=== PATIENT | female | born 1975 | race Caucasian/White ===

== ENCOUNTER 2020-08-14 12:33 | Emergency (ER) | payer OTHER, SELFPAY ==
--- NOTE | ~2020-08-14 | XR_ITS ---
XR chest 1V portable DATE: 08/14/2020 13:55 INDICATION: Covid-positive patient TECHNIQUE: Portable upright AP chest on 08/14/2020 at 1357 hours COMPARISON: 07/18/2015 PA and lateral chest FINDINGS: Normal heart size. No hilar or mediastinal enlargement. No pulmonary infiltrate or consolidation, pleural effusion or pulmonary vascular congestion or pneumo thorax. IMPRESSION: No active cardiopulmonary disease Reviewed, dictated and finalized at location A. AND DOG BATHER
--- NOTE | ~2020-08-14 | CT_ITS ---
EXAMINATION: CTA chest PE protocol DATE: 08/14/2020 15:40 INDICATION: Left-sided chest pain, COVID 19 positive TECHNIQUE: Computed tomography angiography (CTA) of the chest was performed with 100 mL Omnipaque-350 intravenous contrast timed to evaluate the pulmonary arteries. Coronal maximum intensity projection 3D-reconstructions were created by the technologist. The dose-length product (DLP) was 908.57 mGy-cm. Automated exposure control and iterative reconstruction technique were employed. COMPARISON: None. FINDINGS: The pulmonary arteries are well-opacified. No pulmonary embolism is identified. There are a few patchy groundglass opacities in the lungs, right greater than left. No pleural effusion or pneum othorax is identified. No pathologically enlarged thoracic lymph nodes are identified. The heart size is normal. There is a 1.9 cm nodule of the right thyroid lobe. The gallbladder is surgically absent. There is mild thoracic spondylosis. There are at least six arterially enhancing lesions of the liver. The largest is a 2.3 cm exophytic l esion involving liver segment I. Additional smaller lesions are seen in liver segments II, Beny, V, , and VIII. The liver is diffusely low in attenuation when compared with the spleen, consistent with hepatic steatosis. IMPRESSION: 1. No pulmonary embolism. 2. Patchy groundglass opacities of the lungs, consistent with COVID 19 pneumonia. 3. Multiple arterial enhancing lesions of the liver which could reflect hepatic adenomas or possibly focal nodular hyperplasia or flash filling hemangiomas. Follow-up by MRI without and with contrast is recommended. Reviewed, dictated and finalized at location A. DER BRAKE LINING IMPRESSION: 1. No pulmonary embolism. 2. Patchy groundglass opacities of the lungs, consistent with COVID 19 pneumoni a. 3. Multiple arterial enhancing lesions of the liver which could reflect hepatic adenomas or possibly focal nodular hyperplasia or flash filling hemangiomas. F ollow-up by MRI without and with contrast is recommended.
[2020-08-14 13:07] VITALS: BP 139/108; PULSE 93; RESP 20; TEMP 36.3; O2SAT 98
[2020-08-14 13:19] VITALS: RESP 20
--- NOTE | 2020-08-14 13:24 | ECG_ITS ---
Measurements Intervals [place] Rate: 84 P: 9 MS: 138 QRS: 58 QRSD: 82 T: 0 QT: 338 QTc: 401 Interpretive Statements SINUS RHYTHM DELAYED PRECORDIAL R/S TRANSITION BORDERLINE ST-T WAVE ABNORMALITY- INFERIOR LEADS BASELINE ARTIFACT- I, II, AVF BORDERLINE ECG Electronically Signed On 08-14-2020 14:36:59 IT DIRECTOR by Jean Claude Ward D.O.
--- NOTE | 2020-08-14 13:29 | ED.GENADULT ---
HPI - General Adult General Chief complaint: Chest Pain Stated complaint: pain in chest brain fog Time Seen by Provider: 08/14/20 13:20 Source: patient Mode of arrival: ambulatory Limitations: no limitations History of Present Illness HPI narrative: Patient states she has had pain above and below her left breast. Discomfort has been mild, off and on since last pm, and associated with some anxiety. Nothing at home has made the discomfort better or worse. Quality of discomfort is dull in nature. Radiation: non-radiation Severity: mild Quality: dull Pain Consistency: intermittent Exacerbating factors: none Associated symptoms: denies other symptoms Related Data Home Medications Medication Instructions Recorded Confirmed albuterol sulfate 2 inh INHALATION Q6H 08/14/20 08/14/20 fluticasone propion-salmeterol 1 inh INHALATION BID 08/14/20 08/14/20 [Advair Diskus] levocetirizine [Xyzal] 5 mg PO DAILY 08/14/20 08/14/20 montelukast 10 mg PO DAILY 08/14/20 08/14/20 Allergies Allergy/AdvReac Type Severity Reaction Status Date / Time Sulfa (Sulfonamide Allergy Mild RESP Unverified 08/14/20 13:23 Antibiotics) DISTRESS Review of Systems Constitutional: Constitutional: Reports no additional constitutional complaints Eyes: Eyes: Reports no additional eye complaints ENT: Reports system reviewed and no additional complaints, except as documented Cardiovascular: Cardiovascular: Reports no additional cardiovascular complaints Respiratory: Respiratory: Reports dyspnea Comments: mild shortness of breath Gastrointestinal: Gastrointestinal: Reports no additional gastrointestinal complaints Genitourinary: Genitourinary: Reports no additional female genitourinary complaints Musculoskeletal: Musculoskeletal: Reports no additional musculoskeletal complaints Integumentary/Breasts: Skin/Breast: Reports system reviewed and no additional complaints, except as docu Neurologic: Reports system reviewed and no additional complaints, except as documented Psychiatric: Psychiatric: Reports no additional psychiatric complaints Endocrine: Endocrine: Reports no additional endocrine complaints Hematologic/Lymphatic: Hematologic/Lymphatic: Reports no additional hematologic/lymphatic complaints Allergic/Immunologic: Allergic/Immunologic: Reports no additional allergic/immunologic complaints [facility] Past Medical History Medical History (Updated 08/14/20 @ 16:35 by Yossi Crisostomo MD) Asthma Endometriosis Surgical History Surgical History (Updated 08/14/20 @ 15:40 by Yossi Crisostomo MD) No significant past surgical history Family History Family History Mother Hypertension Father Heart disease Lymphoma Social History Social History Smoking status: Never smoker Alcohol use details: minimal Substance use: never Living arrangements: with family 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 No discomfort when pressing on these areas. No rashes. Resp: Effort & Inspection: normal respiratory effort Auscultation: clear to auscultation bilaterally Cardio: Rate: regular rate Rhythm: regular rhythm GI: GI Palp: Yes Soft to palpation Skin: General skin exam: normal color Neuro: General: patient oriented x3 and moves all extremities Extrem: General: normal to inspection Psych: Appearance: grossly normal Mental Status: mental status grossly normal Affe
[2020-08-14 13:45] LABS: Basophils Absolute Auto 0.03 K/mm3 (0.00-0.10); Basophils Percent Auto 0.5 % (0.0-1.0); Eosinophils Absolute Auto 0.01 K/mm3 (0.02-0.50); Eosinophils Percent Auto 0.2 % (1.0-6.0); Hematocrit 46.1 % (35.0-49.0); Hemoglobin 15.2 g/dL (12.0-15.0); Immature Granulocyte Absolute 0.02 K/mm3 (0.00-0.00); Immature Granulocyte Percent A 0.3 % (0.0-0.0); Lymphocytes Absolute Auto 2.22 K/mm3 (1.10-4.50); Lymphocytes Percent Auto 37.6 % (18.0-42.0); Mean Corpuscular Hemoglobin 30.8 pg (27.0-31.0); Mean Corpuscular Volume 93.3 fL (78.0-102.0); Mean Platelet Volume 9.6 fl (9.2-11.8); Monocytes Absolute Auto 0.51 K/mm3 (0.10-0.90); Monocytes Percent Auto 8.6 % (2.0-11.0); Neutrophils Absolute Auto 3.1 K/mm3 (1.7-7.2); Neutrophils Percent Auto 52.8 % (50.0-70.0); Platelet Count Result 280 K/mm3 (150-420); Red Blood Count 4.94 M/mm3 (4.20-5.40); Red Cell Distribution Width 13.3 % (11.6-14.4); White Blood Count 5.9 K/mm3 (4.8-10.8)
[2020-08-14 14:00] VITALS: BP 110/82; PULSE 84; RESP 20; O2SAT 94
[2020-08-14 14:00] LABS: D Dimer 0.55 mg/L (0.19-0.50)
[2020-08-14 14:02] LABS: Alanine Aminotransferase 49 U/L (14-59); Albumin Level 3.7 g/dL (3.4-5.0); Alkaline Phosphatase 102 U/L (46-116); Anion Gap 9 mmol/L (8-16); Aspartate Amino Transferase 15 U/L (15-37); Bilirubin,Total 0.2 mg/dL (0.00-1.00); Blood Urea Nitrogen 19 mg/dL (7-18); Calcium 8.8 mg/dL (8.5-10.1); Carbon Dioxide 26 mmol/L (21-32); Chloride 101 mmol/L (98-108); Estimated CRCL calculation 65 ml/min; Estimated Glomerular Filt Rate 59; Glucose 95 mg/dL (70-99); Osmolality Calculated 284 mOsm/kg (285-295); Potassium 3.5 mmol/L (3.5-5.1); Sodium 136 mmol/L (136-145); Total Protein 7.7 g/dL (6.4-8.2); Troponin I 4.7 ng/L (0.00-60.4)
[2020-08-14 15:00] VITALS: BP 92/65; PULSE 90; RESP 20; O2SAT 98
[2020-08-14 15:05] LABS: SPREG INTERNAL CONTROL Positive; Serum Qual hCG NEG
[2020-08-14 16:00] VITALS: BP 100/88; PULSE 88; RESP 20; O2SAT 98
[2020-08-14 17:00] VITALS: PULSE 84; RESP 20; O2SAT 97
[2020-08-14 17:21] LABS: Free T4 Free Thyroxine 0.93 ng/dL (0.76-1.46); Thyroid Stimulating Hormone 1.47 uIU/mL (0.36-3.74)
== END 2020-08-14 17:15 | disposition home or self-care (01) ==
PROVIDERS: Emergency Provider Emergency Medicine; PCP Internal Medicine
DX: R07.89 Other chest pain (principal); E04.1 Nontoxic single thyroid nodule
CPT/HCPCS: 36415; 71045; 71275; 80053; 84439; 84443; 84484; 84703; 85025; 85380; 93005; 99283; 99284; Q9965; Q9967

== ENCOUNTER 2021-10-06 12:15 | Outpatient (CLI) | payer OTHER, SELFPAY ==
--- NOTE | ~2021-10-06 | MM_ITS ---
EXAMINATION: MM screening karely BI w isidro HISTORY: Screening mammogram TECHNIQUE: Craniocaudal and mediolateral oblique 3-D tomosynthesis images were obtained and synthetic 2-D images were generated. CAD analysis was submitted and interpreted. COMPARISON: No prior mammogram is available for comparison at this institution. BREAST PARENCHYMAL COMPOSITION: There are scattered areas of fibroglandular density. FINDINGS: There is an indeterminate right cluster grouped microcalcifications in the upper outer left breast. Diagnostic left mammogram with magnification views is recommended. Otherwise there is no evidence of suspicious mass, calcification, or architectural distortion to sugg est malignancy in either breast.. IMPRESSION: 1. Indeterminate grouped microcalcifications, upper outer left breast 2. Diagnostic left mammogram with magnification views is recommended BI-RADS Category 0: Incomplete: Needs additional imaging evaluation. Reviewed, dictated and finalized at location A. NCIAL AID COORDINATOR
[2021-10-06 13:06] LABS: Thyroid Stimulating Hormone 1.28 uIU/mL (0.36-3.74)
[2021-10-08 20:23] LABS: T4 Thyroxine 5.3 mcg/dL (5.1-11.9)
[2021-10-09 04:11] LABS: FSH 8.7 mIU/mL (***); LH 3.1 mIU/mL (***); Progesterone 0.3 ng/mL (***)
== END 2021-10-06 12:16 | disposition home or self-care (01) ==
PROVIDERS: Visit Provider Obstetrics & Gynecology
DX: Z12.31 Encounter for screening mammogram for malignant neoplasm of breast (principal); N92.6 Irregular menstruation, unspecified
CPT/HCPCS: 36415; 77063; 77067; 83001; 83002; 84144; 84436; 84443

== ENCOUNTER 2021-10-20 09:35 | Outpatient (CLI) | payer OTHER, SELFPAY ==
--- NOTE | ~2021-10-20 | MM_ITS ---
EXAMINATION: MM diagnostic karely LT w isidro HISTORY: Follow-up left breast calcifications TECHNIQUE: Additional 3-D tomosynthesis images of left were performed and synthetic 2-D images were g enerated. CAD analysis was submitted and interpreted. COMPARISON: 10/06/2021 BREAST PARENCHYMAL COMPOSITION: The breasts are heterogenously dense, which may obscure small masses. FINDINGS: There are no suspicious masses or architectural distortion. There is a cluster of calcifica tions with monomorphic appearance in the upper outer quadrant of the left breast which are partially obscured by fibroglandular tissue. IMPRESSION: 1. Probable benign clustered left breast calcifications. 2. Recommend 6 month follow-up diagnostic left mammogram BI-RADS category 3, probably benign findings. Reviewed, dictated and finalized at location A. STANT SHIFT SUPERVISOR
== END 2021-10-20 09:36 | disposition home or self-care (01) ==
PROVIDERS: PCP Internal Medicine; Visit Provider Obstetrics & Gynecology
DX: R92.8 Other abnormal and inconclusive findings on diagnostic imaging of breast (principal)
CPT/HCPCS: 77061; 77065; G0279

== ENCOUNTER 2021-12-05 08:15 | Outpatient (CLI) | payer OTHER, SELFPAY ==
--- NOTE | ~2021-12-05 | US_ITS ---
EXAMINATION: US pelvic complete w TV EXAM DATE: 12/05/2021 08:52 INDICATION: N92.0 - Excessive and frequent menstruation with regular ... TECHNIQUE: Pelvic transabdominal and transvaginal sonogram was performed. There are multiple graysca le and Doppler images available for interpretation. There is no prior study for comparison. FINDINGS: Uterus measures 8.4 x 4.6 x 5.2 cm, with a 2 cm fibroid in the anterior lower uterine segm ent. Endometrial stripe measures 4 mm, within normal limits. There is a nabothian cyst. There is no free pelvic fluid. Right adnexa: The ovary measures 2.1 x 1.2 x 1.7 cm and is morphologically normal. Ovarian vascular f low confirmed. Left adnexa: The ovary is not identified. There is no adnexal mass. IMPRESSION: Small lower uterine segment fibroid. Reviewed, dictated and finalized at location A.
== END 2021-12-05 08:16 | disposition home or self-care (01) ==
LOC: CHSIMG 08:17
PROVIDERS: PCP Internal Medicine; Visit Provider Obstetrics & Gynecology
DX: N92.0 Excessive and frequent menstruation with regular cycle (principal)
CPT/HCPCS: 76830; 76856

== ENCOUNTER 2022-01-21 16:17 | Outpatient (CLI) | payer OTHER, SELFPAY ==
[2022-01-21 16:52] LABS: Thyroid Stimulating Hormone 2.44 uIU/mL (0.36-3.74)
[2022-01-24 07:51] LABS: FSH 9.7 mIU/mL (***)
== END 2022-01-21 16:18 | disposition home or self-care (01) ==
LOC: CHSLAB 16:19
PROVIDERS: PCP Internal Medicine; Visit Provider Obstetrics & Gynecology
DX: N95.1 Menopausal and female climacteric states (principal)
CPT/HCPCS: 36415; 83001; 84436; 84443

== ENCOUNTER 2022-02-18 00:33 | Day surgery (SDC) | payer OTHER, SELFPAY ==
[2022-02-09 10:11] VITALS: BMI 41.0
--- NOTE | 2022-02-09 10:37 | PC.NURSE ---
Report to the Outpatient Waiting Room, entrance under the green pavilion located off [facility], at 0630 on 02-18-22. OR Time: 0830. - You and your visitor will be asked a series of questions to screen for COVID 19 for your protection. - Only one visitor is allowed at this time. - The patient visitor is requested to leave or wait in car when not with patient. - A mask is required within the hospital. Patients may have clear liquids (water, carbonated beverages, clear teas, apple juice) until 3 hours prior to surgery with a maximum of 20 ounces. 0530 - No food from midnight until time of surgery - Infants may have breast milk until 4 hours before surgery, infant formula 6 hours prior to surgery. - Children will be allowed to drink immediately following surgery. If applicable, please bring a bottle or sippy cup to assist with drinking. Juice, water, soda, and popsicles are readily available. For infants on formula, please bring formula the day of surgery. Pacifiers are allowed. Take the following medications with a SIP of water the morning of surgery: Advair, Slynd, Bring Albuterol inhaler day of surgery Medications to discontinue per physician: N/A Please no make-up, nail german, hairspray, perfume, deodorant, or body powder the day of surgery. No jewelry (including any body piercings) or valuables the day of surgery, leave them at home. Please take a shower or bath the night before, or the morning of, surgery with an antibacterial soap. Wear comfortable, loose fitting clothing. Children are encouraged to wear pajamas. - Jewelry must be removed prior to entering the operating room. Rings and piercings that are not removed may be cut off. - The hospital will not accept responsibility for valuables. - Please leave all valuables, including medications, at home the day of surgery. If you are going home after surgery, a licensed patrol driver must drive you home. - NO public transportation without another adult. - We recommend that an adult stay with you for 24 hours following discharge. - We also recommend that you do not drive, make important decision, drink alcoholic beverages, or take any drugs that were not prescribed by your health care provider for at least 24 hours after your discharge time. For Pediatric surgeries, we recommend two adults accompany the child home (only one inside the building at this time). Follow any additional instructions given to you from your surgeon. If you or anyone in your household have experienced Covid symptoms in the past week, please notify your surgeon or the nurse liaison at the phone number below for possible testing. Telephone instructions given to Lidia Alan and asked if any additional questions and then verbalized understanding. Patient advised to call surgeon office or pre surgery nurse liaison [phone] if any additional questions.
--- NOTE | 2022-02-17 10:17 | WPDANESEPPF ---
Anes - Initial Pre Proc Eval Procedure: Operation Date: 02/18/22 08:30 Proposed Procedures p Hysteroscopy Dilation and Curettage Endometrial Ablation with Possible Laura, Possible Myosure - Elvis Rivera MD Date/Time: 02/17/22 10:17 Surgeon: Elvis Rivera MD Pre Op Diagnosis: menorrhagia, endometrial polyp Patient Data Age: 46 Gender: F Height: 1.52 m Weight: 95.25 kg Allergies Allergy/AdvReac Type Severity Reaction Status Date / Time Sulfa (Sulfonamide Allergy Mild Rash Verified 02/18/22 07:22 Antibiotics) Home Medications Medication Instructions Recorded Confirmed Type albuterol sulfate 90 mcg/actuation 2 inh inhalation Q6H PRN Shortness 08/14/20 02/18/22 History aerosol inhaler Of Breath Or Wheezing fluticasone 250 mcg-salmeterol 50 1 inh inhalation BID 08/14/20 02/18/22 History mcg/dose blistr powdr for inhalation (Advair Diskus) montelukast 10 mg tablet 10 mg PO HS 08/14/20 02/18/22 History cetirizine 10 mg tablet (Zyrtec) 10 mg PO DAILY 02/09/22 02/18/22 History drospirenone (contraceptive) 4 mg 4 mg PO DAILY 3 months #90 tabs 02/09/22 02/18/22 Rx (28) tablet (Slynd) Patient hx anesthesia problems: none Family hx anesthesia problems: none Results Review: All pre-operative results and documents have been reviewed as part of the pre-operative evaluation. [facility] Past Medical History Medical History Allergies Anxiety Asthma Endometriosis Menorrhagia Morbid obesity with BMI of 40.0-44.9, adult Surgical History Surgical History H/O laparoscopy History of section No significant past surgical history S/P cholecystectomy Family History Family History Mother Hypertension Father Heart disease Lymphoma Diabetes mellitus Sibling Cancer Social History Social History Smoking packs per day: 0.25 Smoking cigarettes per day: 5.0 Years smoked: 14 Smoking pack-years: 3.50 Smoking status: Former smoker Tobacco type: cigarettes Second hand tobacco smoke exposure: No Alcohol intake: current Drinks per week: 5 Alcohol use details: socially mostly Substance use: never Substance use type: does not use Last use: 2014 Living arrangements: with family 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 Gender identity (if verbalized by the patient): Female Sexual Orientation (if Verbalized by the Patient): Straight or Heterosexual Spiritual care concerns: No Anes - Eval Final PreProcedure Day of Procedure 02/17/22 10:17 Patient weight: morbidly obese Heart: regular rate and rhythm Lungs: clear to auscultation and normal air movement Airway: Mallampati scale class II Neurological: alert and oriented Last oral intake: >/= 8 hours ASA classification: III Emergent: no Anesthetic plan: proceed Anesthesia type and monitoring: general GIVS and LMA Results Review: All pre-operative results and documents have been reviewed as part of the pre-operative evaluation. Informed Consent: The patient's anesthetic plan and its attendant risks and benefits were discussed with the patient/family/POA. Questions were solicited and answers provided to the satisfaction of the patient/family/POA.
--- NOTE | 2022-02-17 22:34 | PM.IMHP ---
H&P: HPI History of Present Illness Date/Time: 02/17/22 22:34 Chief Complaint: Abnormal uterine bleeding Narrative: Patient with a history of abnormal bleeding with irregularity and clots and heavy bleeding for 3-4 months. The bleeding has since improve on progesterone only control pills. Her evaluation included an ultrasound which showed a small lower uterine segment fibroid. She had an endometrial biopsy in the office which showed an endometrial polyp. She was recommended for D and C hysteroscopy and possible myosure removal of endometrial lesion if present. Review of Systems Review of Systems: All systems reviewed & are unremarkable except as noted in HPI and below Constitutional: Constitutional: Reports no additional constitutional complaints Eyes: Eyes: Reports no additional eye complaints Cardiovascular: Cardiovascular: Reports no additional cardiovascular complaints Respiratory: Respiratory: Reports no additional respiratory complaints Gastrointestinal: Gastrointestinal: Reports no additional gastrointestinal complaints Genitourinary: Genitourinary: Reports no additional female genitourinary complaints and Reports as per HPI Integumentary/Breasts: Skin/Breast: Reports system reviewed and no additional complaints, except as docu Neurologic: Reports system reviewed and no additional complaints, except as documented Psychiatric: Psychiatric: Reports no additional psychiatric complaints Hematologic/Lymphatic: Hematologic/Lymphatic: Reports no additional hematologic/lymphatic complaints PMFSH Past Medical History Medical History Allergies Anxiety Asthma Endometriosis Menorrhagia Morbid obesity with BMI of 40.0-44.9, adult Surgical History Surgical History H/O laparoscopy History of section No significant past surgical history S/P cholecystectomy Family History Family History Mother Hypertension Father Heart disease Lymphoma Diabetes mellitus Sibling Cancer Social History Social History Smoking packs per day: 0.25 Smoking cigarettes per day: 5.0 Years smoked: 14 Smoking pack-years: 3.50 Smoking status: Former smoker Tobacco type: cigarettes Second hand tobacco smoke exposure: No Alcohol intake: current Drinks per week: 5 Alcohol use details: socially mostly Substance use: never Substance use type: does not use Last use: 2014 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 Gender identity (if verbalized by the patient): Female Sexual Orientation (if Verbalized by the Patient): Straight or Heterosexual Spiritual care concerns: No Meds Home Medications and Allergies Home Medications Medication Instructions Recorded Confirmed Type albuterol sulfate 90 mcg/actuation 2 inh inhalation Q6H PRN Shortness 08/14/20 02/09/22 History aerosol inhaler Of Breath Or Wheezing fluticasone 250 mcg-salmeterol 50 1 inh inhalation BID 08/14/20 02/09/22 History mcg/dose blistr powdr for inhalation (Advair Diskus) montelukast 10 mg tablet 10 mg PO HS 08/14/20 02/09/22 History cetirizine 10 mg tablet (Zyrtec) 10 mg PO DAILY 02/09/22 02/09/22 History drospirenone (contraceptive) 4 mg 4 mg PO DAILY 3 months #90 tabs 02/09/22 Rx (28) tablet (Slynd) Allergies Allergy/AdvReac Type Severity Reaction Status Date / Time Sulfa (Sulfonamide Allergy Mild RESP Verified 02/09/22 10:08 Antibiotics) DISTRESS Exam Const: General: comfortable and no acute distress Orientation/consciousness: oriented to person, oriented to place and oriented to time Eyes: General: appearance normal, both eyes and all related structures Neck: Neck: normal visual inspection Resp: Effort & Inspection: normal respiratory effort
[2022-02-18 06:28] VITALS: BP 130/89; PULSE 88; RESP 20; TEMP 36.3; O2SAT 100
--- NOTE | 2022-02-18 07:17 | WPDHPUPDATE1 ---
History and Physical Update Update Date/Time: 02/18/22 07:17 History and Physical has been reviewed, including an updated exam of the patient. There are NO changes in the patient's condition. Risks, benefits, and alternatives have been discussed and questions answered. Patient agrees to proceed with procedure.
[2022-02-18] MEDS: ACETAMINOPHEN 500 MG TABLET 1000 MG PO (07:24)
[2022-02-18] MEDS: LACTATED RINGERS 1,000 ML 30 ML IV CONT (07:30)
[2022-02-18] MEDS: ceFAZolin 2 GM/D5W 50 ML 2 GM/50 ML BAG IVPB (08:23)
[2022-02-18] MEDS: LIDOCAINE HCL 1% LOCAL INJ 20 ML VIAL 10 ML INFILTRATE (08:52)
--- NOTE | 2022-02-18 08:53 | W.PM.PROC2 ---
Procedure Note - Detailed Date of Procedure 02/18/22 Pre-op Diagnosis endometrial polyp Post-op Diagnosis Same Procedure Performed Dilation and curettage hysteroscopy diagnostic. Surgeon Elvis Rivera MD Anesthesia MAC and Local Indications Endometrial biopsy showed endometrial polyp. Findings Uterus sound to 7.5 cm. The uterine cavity was atrophic. Minimal tissue obtained on curettage.40cc deficit of normal saline insufflation fluid Description of Procedure After form consent was obtained patient was taken to the operating room and adequate IV sedation was administered. She was placed in high lithotomy position and prepped and draped in sterile fashion. Attention was turned to the vagina. Speculum inserted. Single-tooth tenaculum placed on anterior lip of the cervix. 1% lidocaine was injected at the cervical vaginal interface at 2, 5, 8 and 10 oclock position. The small dilator was inserted. The uterine sound was inserted and sounded to 7.5 cm. The cervix was dilated to an 8 Bond dilator. The hysteroscope was inserted. The cavity appeared atrophic. No lesions seen. A curettage was then performed and there was minimal tissue obtained. The single-tooth tenaculum was removed. Hemostasis was noted. The speculum was removed. The patient tolerated procedure well. Estimated Blood Loss 5 Drains No Packing No Pathology Yes ( Scant endometrial curettings) Complications No immediate complications Condition Stable Disposition PACU [facility] Billing Surgery - Charge Forward: Surgery Billing
[2022-02-18 08:57] VITALS: BP 151/100; PULSE 69; RESP 16; O2SAT 99
[2022-02-18 09:25] VITALS: BP 150/92; PULSE 62; RESP 16; O2SAT 99
== END 2022-02-18 09:35 | disposition home or self-care (01) ==
PROVIDERS: PCP Internal Medicine; Visit Provider Obstetrics & Gynecology
PROC: 0U5B8ZZ Destruction of Endometrium, Via Natural or Artificial Opening Endoscopic (ICD-10-PCS; CPT 58563; principal; 2022-02-18 08:30)
DX: N92.0 Excessive and frequent menstruation with regular cycle (principal); N84.0 Polyp of corpus uteri; E66.01 Morbid (severe) obesity due to excess calories; Z68.41 Body mass index [BMI] 40.0-44.9, adult; F17.210 Nicotine dependence, cigarettes, uncomplicated
CPT/HCPCS: 58558; 88305; A9270; J0690; J1100; J2250; J2405; J2704; J3010; J7120

== ENCOUNTER 2022-06-19 08:52 | Outpatient (CLI) | payer OTHER, SELFPAY ==
--- NOTE | ~2022-06-19 | MMUS_ITS ---
EXAMINATION: MM diagnostic karely LT w isidro, US breast LT limited HISTORY: Follow-up left breast calcifications. TECHNIQUE: Additional 3-D tomosynthesis images of the left breast were performed and synthetic 2-D im ages were generated. CAD analysis was submitted and interpreted. High resolution Limited left breast ultrasound was performed. COMPARISON: 10/06/2021 BREAST PARENCHYMAL COMPOSITION: Breast composed of scattered areas of fibroglandular density FINDINGS: MAMMOGRAPHIC FINDINGS: There are stable benign-appearing punctate calcifications in the upper outer quadrant of the left charlie ast. There are no suspicious masses or architectural distortion. ULTRASOUND: Limited left breast ultrasound: At 2:00, 10 cm from the nipple, there is an 8 mm simple cyst. There a re mildly prominent ducts at the 3:00 position. No sonographic evidence for malignancy. IMPRESSION: 1. No evidence for malignancy in the left breast. 2. Routine yearly screening mammogram and regular clinical breast examination are recommended. BI-RADS Category 2: Benign finding(s). Reviewed, dictated and finalized at location A. IMPRESSION: 1. No evidence for malignancy in the left breast. 2. Routine yearly screening mammogram and regular clinical breast examination a re recommended. BI-RADS Category 2: Benign finding(s).
== END 2022-06-19 08:53 | disposition home or self-care (01) ==
LOC: CHSIMG 08:54
PROVIDERS: PCP Internal Medicine; Visit Provider Obstetrics & Gynecology
DX: R92.8 Other abnormal and inconclusive findings on diagnostic imaging of breast (principal)
CPT/HCPCS: 76642; 77061; 77065; G0279

== ENCOUNTER 2023-08-03 07:49 | Outpatient (CLI) | payer OTHER, SELFPAY ==
--- NOTE | ~2023-08-03 | MM_ITS ---
EXAMINATION: MM screening karely BI w isidro HISTORY: Screening mammogram TECHNIQUE: Craniocaudal and mediolateral oblique 3-D tomosynthesis images were obtained and synthetic 2-D images were generated. CAD analysis was submitted and interpreted. COMPARISON: 06/2022 diagnostic left mammogram and limited left breast ultrasound examination 10/20/2021 diagnostic left mammogram 10/06/2021 bilateral screening mammogram BREAST PARENCHYMAL COMPOSITION: There are scattered areas of fibroglandular density. FINDINGS: There is no evidence of suspicious mass, calcification, or architectural distortion to sugg est malignancy in either breast. There has been no suspicious interval change. IMPRESSION: 1. No mammographic evidence of malignancy. 2. Recommend routine screening mammography in one year. BI-RADS Category 1: Negative Reviewed, dictated and finalized at location A. R TESTER PRIMARY
== END 2023-08-03 07:50 | disposition home or self-care (01) ==
LOC: CHSIMG 07:51
PROVIDERS: PCP Internal Medicine; Visit Provider Obstetrics & Gynecology
DX: Z12.31 Encounter for screening mammogram for malignant neoplasm of breast (principal)
CPT/HCPCS: 77063; 77067

== ENCOUNTER 2024-10-05 11:54 | Outpatient (CLI) | payer OTHER, SELFPAY ==
--- NOTE | ~2024-10-05 | MM_ITS ---
EXAMINATION: MM screening karely BI w isidro HISTORY: Screening TECHNIQUE: Craniocaudal and mediolateral oblique 3-D tomosynthesis images were obtained and synthetic 2-D images were generated. CAD analysis was submitted and interpreted. COMPARISON: Comparison to multiple prior studies sequentially, with oldest reviewed study dated 10/06. BREAST PARENCHYMAL COMPOSITION: Dense: The breasts are heterogeneously dense, which may obscure small masses FINDINGS: There is no evidence of suspicious mass, calcification, or architectural distortion to sugg est malignancy in either breast. There has been no suspicious interval change. IMPRESSION: 1. No mammographic evidence of malignancy. 2. Recommend routine screening mammography in one year. BI-RADS Category 1: Negative Reviewed, dictated and finalized at location B. EL ENGINEER
--- OUTSIDE RECORDS SUMMARY | 2024-10-05 12:01 | XMS_ITS | Encounter Summary ---
Author Organization [facility] Address [address] [place] [address] Phone Care Team Providers Care Administrative Support Assoc Name Role Phone Wesley Jimenez MD Primary Care Provider [phone] Homar Meraz MD Unavailable [phone] Manjula Turner MD Unavailable Reason for Visit * Reason Comments Medication Refill Encounter Details Date Type Department Care Team (Late st Contact Info) Description 05/03/2020 [facility] [address] [place] [address] Wesley Jimenez MD [address] [id number] Medication Refill Social History Tobacco Use Types Packs/Day Years Used Date Smoking Tobacco: Former Smokeless Tobacco: Never Alcohol Use Standard Drinks/Week Comments Yes 1 (1 standard drink = 0.6 oz pur e alcohol) PHQ-2 Answer Date Recorded PHQ-2 Score 0 04/29/2019 Sexually Active Control Partners Comments Yes Male Comments No Sex and Gender Information Value Date Recorded Sex Assigned at Not on file Legal Sex Female 3:22 AM MANAGER MARKETING COMMUNICATIONS Gender Identity Not on file Sexual Orientation Not on file documented as of this encounter Miscellaneous Notes * Telephone Encounter - Wesley Jimenez MD - 05/06/2020 2:52 PM CDT Prescription approved. Please call in * Telephone Encounter - Kaley Vieyra RN - 05/06/2020 2:07 PM CDT Medication routed to provider for review and approval of medication order(s) if appropriate. Requested Prescriptions Pending Prescriptions Disp Refills Advair Diskus 250-50 MCG/DOSE AEROSOL POWDER, BREATH ACTIVATED [Pharmacy Med Name: ADVAIR 250-50 DISKUS] 3 Each 3 Sig: INHALE 1 PUFF BY MOUTH TWICE DAILY There is no refill protocol information for this order documented in this encounter Plan of Treatment Upcoming Encounters Date Type Department Care Team (Late st Contact Info) Description 12/18/2024 12:30 PM CDT Office Visit [facility] - [facility] Medicine [facility] [address] [place] [address] Wesley Jimenez MD #[address] [address] documented as of this encounter Visit Diagnoses Diagnosis Severe persistent asthma without complication documented in this encounter Additional Health Concerns Infection Onset Date Last Indicated Resolved Time COVID - 19 Confirmed 08/14/2020 08/14/2020 021 12:18 AM MANAGER MARKETING COMMUNICATIONS COVID - 19 Confirmed 09/16/2020 09/16/2020 021 12:18 AM MANAGER MARKETING COMMUNICATIONS Respiratory Rule-Out 08/02/2024 08/02/2024 024 8:26 AM MANAGER MARKETING COMMUNICATIONS COVID - 19 08/02/2024 08/02/2024 08/02/2024 8:26 AM MANAGER MARKETING COMMUNICATIONS Assessment Noted Time PHQ-9 Depression Total Score: 0 07/03/20 19 8:37 AM MANAGER MARKETING COMMUNICATIONS documented as of this encounter Care Teams Administrative Support Assoc Relationship Specialty Start Date End Date Wesley Jimenez MD [address] [address] PCP - General Family Medicine 07/18/15 Homar Meraz MD [address] [facility] [address] [facility] [address] [place] [address] Consulting Physician Obstetrics & Gynecology 03/23/19 Manjula Turner MD #[address] [address] Consulting Physician Endocrinology 09/13/20 documented as of this encounter
--- OUTSIDE RECORDS SUMMARY | 2024-10-05 12:01 | XMS_ITS | Encounter Summary ---
Author Organization [facility] Address [address] [place] [address] Phone Care Team Providers Care Chief Fishery Division Name Role Phone Wesley Jimenez MD Primary Care Provider [phone] Homar Meraz MD Unavailable [phone] Manjula Turner MD Unavailable Reason for Visit * Reason Comments Medication Refill Encounter Details Date Type Department Care Team (Late st Contact Info) Description 08/07/2023 [facility]ill [facility]2 [place] [id number] Wesley Jimenez MD #[address] [address] Medication Refill Social History Tobacco Use Types Packs/Day Years Used Date Smoking Tobacco: Former Cigarettes 0.5 25 1 - 2014 Smokeless Tobacco: Never Alcohol Use Standard Drinks/Week Comments Yes 1 (1 standard drink = 0.6 oz pur e alcohol) PHQ-2 Answer Date Recorded Total Score - Questions 1-9 0 07/16 Education Answer Date Recorded What is the highest level of school you have completed or the highest degree you have received? Bachelor's degree (e.g., BA, AB, BS) 08/02/2020 Sexually Active Control Partners Comments Yes Male estrogen Slynd Comments No Sex and Gender Information Value Date Recorded Sex Assigned at Not on file Legal Sex Female 3:22 AM BURR SANDER Gender Identity Not on file Sexual Orientation Not on file documented as of this encounter Miscellaneous Notes * Telephone Encounter - Ynes Jeffrey RN - 08/10/2023 8:50 AM CST PDMP 07/10/23 Pt had 3 month course - refill appropriate? Medication failed the protocol, provider to review and approve the medication order if appropriate. Requested Prescriptions Pending Prescriptions Disp Refills phentermine 30 MG Capsule [Pharmacy Med Name: PHENTERMINE 30 MG CAPSULE] 30 Capsule 2 Sig: TAKE 1 CAPSULE BY MOUTH DAILY Not Delegated - Anorexiants Non-amphetamine Protocol Failed - 08/07/2023 7:16 AM Failed - This refill cannot be delegated Passed - Visit with relevant provider in past 12 months or upcoming 90 days Recent Visits Date Type Provider Dept 07/26/23 Office Visit Wesley Jimenez MD [facility] [place] 04/30/23 Office Visit Wesley Jimenez MD [facility] 10/28/22 Office Visit [facility] Showing recent visits within past 365 days and meeting all other requirements Future Appointments Date Type Provider Dept 10/25/23 Appointment Wesley [facility] Showing future appointments within next 90 days and meeting all other requirements SANDER documented in this encounter Plan of Treatment Upcoming Encounters Date Type Department Care Team (Late st Contact Info) Description 12/18/2024 12:30 PM CDT Office Visit [facility] - Family Medicine - [place] [address] [place] [address] Wesley Jimenez MD [address] [address] documented as of this encounter Visit Diagnoses Diagnosis Obesity (BMI 30-39.9) Obesity, unspecified documented in this encounter Additional Health Concerns Infection Onset Date Last Indicated Resolved Time Respiratory Rule-Out 08/02/2024 08/02/2024 024 8:26 AM BURR SANDER COVID - 19 08/02/2024 08/02/2024 08/02/2024 8:26 AM BURR SANDER Assessment Noted Time PHQ-9 Depression Total Score: 0 07/26/20 23 2:36 PM BURR SANDER documented as of this encounter Care Teams Chief Fishery Division Relationship Specialty Start Date End Date Wesley Jimenez MD #2 [facility] [address] [place] [address] PCP - General Family Medicine 07/18/15 Homar Meraz MD #2 [facility] [address] [place] [address] Consulting Physician Obstetrics & Gynecology 03/23/19 Manjula Turner MD #2 [facility] [address] [place] [address] Consulting Physician Endocrinology 09/13/20 documented as of this encounter
--- OUTSIDE RECORDS SUMMARY | 2024-10-05 12:01 | XMS_ITS | Encounter Summary ---
Author Organization [facility] Address [address] [place] [address] Phone Care Team Providers Care Finger Buff Sewer Name Role Phone Wesley Jimenez MD Primary Care Provider [phone] Homar Meraz MD Unavailable [phone] Manjula Turner MD Unavailable Reason for Referral * Radiology Services (Routine) - Closed Specialty Diagnoses / Procedures Referred By Josefa montelongo Referred To Contact Radiology Diagnoses Thyroid nodule greater than or equal to 1.5 cm in diameter incidentally noted on imaging study Procedures US GUIDANCE AND THYROID BIOPSY Wesley Jimenez MD #[address] [address] Phone: tel: fax: Referral ID Status Reason Start Date Expiration Date Visits Re quested Visits Authorized [id number] Closed 08/27/2020 1 1 AGE COMPILATION CLERK Reason for Visit * Reason Onset Date Comments Need Order 08/27/2020 PFT Results 08/27/2020 Encounter Details Date Type Department Care Team ([facility] st Contact Info) Description 08/27/2020 Telephone [facility] [address] [place] [id number] Wesley Jimenez MD [address] [address] Need Order (PFT); Results Social History Tobacco Use Types Packs/Day Years Used Date Smoking Tobacco: Former Smokeless Tobacco: Never Alcohol Use Standard Drinks/Week Comments Yes 1 (1 standard drink = 0.6 oz pur e alcohol) PHQ-2 Answer Date Recorded Total Score - Questions 1-9 0 08/16 Education Answer Date Recorded What is the highest level of school you have completed or the highest degree you have received? Bachelor's degree (e.g., BA, AB, BS) 08/02/2020 Sexually Active Control Partners Comments Yes Male Comments No Sex and Gender Information Value Date Recorded Sex Assigned at Not on file Legal Sex Female 3:22 AM TONNAGE COMPILATION CLERK Gender Identity Not on file Sexual Orientation Not on file COVID-19 Exposure Response Date Recorded In the last month, have you been in contact with someone who was confirmed or suspected to have Coronavirus / COVID-19? Yes 08/30/2020 8:14 AM TONNAGE COMPILATION CLERK documented as of this encounter Miscellaneous Notes * Telephone Encounter - Heaven Chauhan RN - 08/28/2020 3:11 PM CST PFT w/wo bronchodilator ordered as written in other encounter from today. MRI abdomen with contrast ordered- scheduled for Wednesday morning- She states she is claustrophobic and asking for pre medication. She is scheduled to see Margie on Wednesday and she can talk to her about this at that time. Pt aware of order for biopsy after thyroid U/S. Pt has not prior experience with taking anxiety med that she remembers Routing as FYI only- AGE COMPILATION CLERK * Telephone Encounter - Wesley Jimenez MD - 08/27/2020 6:29 PM CST Please call. I ordered a biospy of your thyroid. Ultrasound shows nodule on your right thyroid gland AGE COMPILATION CLERK * Telephone Encounter - Lilli Armando - 08/27/2020 11:27 AM CST Patient calling because after she saw JAYLIN Hanson, in 07/2020, she states a PFT was ordered, but that she got COVID and was unable to get it done. When she just called back to schedule, they say they do not have a PFT order in the system. I do see the spirometry (pre/post) ordered. Is that the only test you were wanting? AGE COMPILATION CLERK documented in this encounter Plan of Treatment Upcoming Encounters Date Type Department Care Team (Late st Contact Info) Description 12/18/2024 12:30 PM CDT Office Visit [facility] - [facility] Medicine [facility] [address] [place] [address] Wesley Jim[facility] [facility] [address] [address] Scheduled Orders Name Type Priority Associated Diagnoses Orde r Schedule US GUIDANCE AND THYROID BIOPSY Imaging Routine Thyroid Nodule Greater Than Or Equal To 1.5 Cm In Diameter Incidentally Noted On Imaging Study Expected: 08/27/2020, Expires: 09/27/2020 documented as of this encounter Visit Diagnoses Diagnosis Thyroid nodule greater than or equal to 1.5 cm in diameter incidentally noted on imaging study- Primary documented in this encounter Additional Health Concerns Infection Onset Date Last Indicated Resolved Time COVID - 19 Confirmed 08/14/2020 08/14/2020 021 12:18 AM TONNAGE COMPILATION CLERK COVID - 19 Confirmed 09/16/2020 09/16/2020 021 12:18 AM TONNAGE COMPILATION CLERK Respiratory Rule-Out 08/02/2024 08/02/2024 024 8:26 AM TONNAGE COMPILATION CLERK COVID - 19 08/02/2024 08/02/2024 08/02/2024 8:26 AM TONNAGE COMPILATION CLERK Assessment Noted Time PHQ-9 Depression Total Score: 0 08/27/19 21 7:21 AM TONNAGE COMPILATION CLERK documented as of this encounter Care Teams Finger Buff Sewer Relationship Specialty Start Date End Date Wesley Jimenez MD #2 [facility] [address] [place] [address] PCP - General Family Medicine 07/18/15 Homar Meraz MD #2 [facility] [address] [place] [address] Consulting Physician Obstetrics & Gynecology 03/23/19 Manjula Turner MD #2 [facility] [address] [place] [address] Consulting Physician Endocrinology 09/13/20 documented as of this encounter
--- OUTSIDE RECORDS SUMMARY | 2024-10-05 12:01 | XMS_ITS | Encounter Summary ---
Author Organization [facility] Address [address] [place] [address] Phone Care Team Providers Care Clinical Psychology Teacher Name Role Phone Wesley Jimenez MD Primary Care Provider [phone] Homar Meraz MD Unavailable [phone] Manjula Turner MD Unavailable Reason for Visit * Reason Comments Medication Refill Encounter Details Date Type Department Care Team (Late st Contact Info) Description 09/09/2023 Refill [facility] #2 [place] [phone] Wesley Jimenez MD #[address] [address] Medication Refill Social History Tobacco Use Types Packs/Day Years Used Date Smoking Tobacco: Former Cigarettes 0.5 25 - 2014 Smokeless Tobacco: Never Alcohol Use [...] on file Legal Sex Female 3:22 AM LOOPER FIXER Gender Identity Not on file Sexual Orientation Not on file documented as of this encounter Miscellaneous Notes * Telephone Encounter - Ynes Jeffrey RN - 09/09/2023 9:16 AM CST PRN medication requires review from provider Per nursing clinical judgement, provider to review and approve the medication(s) order(s) if appropriate. Requested Prescriptions Pending Prescriptions Disp Refills albuterol 108 (90 Base) MCG/ACT Aerosol Solution [Pharmacy Med Name: ALBUTEROL HFA (PROAIR) INHALER] 8.5 g 5 Sig: TAKE 1-2 PUFFS BY INHALATION EVERY 6 HOURS NEEDED FOR WHEEZING. Short Acting Inhaled Beta-Agonists Protocol Passed - 09/09/2023 8:07 AM Passed - Visit with relevant provider in past 12 months or upcoming 90 days Recent Visits Date Type Provider Dept 07/26/23 Office Visit Wesley Jimenez MD [facility] 04/30/23 Office Visit Wesley Jimenez MD [facility] 10/28/22 Office Visit [facility] Showing recent visits within past 365 days and meeting all other requirements Future Appointments Date Type Provider Dept 10/25/23 Appointment Wesley Jimenez MD [facility] Showing future appointments within next 90 days and meeting all other requirements ER FIXER documented in this encounter Plan of Treatment Upcoming Encounters Date Type Department Care Team (Late st Contact Info) Description 12/18/2024 12:30 PM CDT [facility] - [place] [address] [place] [address] Wesley Jimenez MD [address] [address] documented as of this encounter Visit Diagnoses Not on filedocumented in this encounter Additional Health Concerns Infection Onset Date Last Indicated Resolved Time Respiratory Rule-Out 08/02/2024 08/02/2024 024 8:26 AM LOOPER FIXER COVID - 19 08/02/2024 08/02/2024 08/02/2024 8:26 AM LOOPER FIXER Assessment Noted Time PHQ-9 Depression Total Score: 0 07/26/20 23 2:36 PM LOOPER FIXER documented as of this encounter Care Teams Clinical Psychology Teacher Relationship Specialty Start Date End Date Wesley Jimenez MD #2 [facility] [address] [place] [address] PCP - General Family Medicine 07/18/15 Homar Meraz MD #2 [facility] [address] [place] [address] Consulting Physician Obstetrics & Gynecology 03/23/19 Manjula Turner MD #2 [facility] [address] [place] [address] Consulting Physician Endocrinology 09/13/20 documented as of this encounter
--- OUTSIDE RECORDS SUMMARY | 2024-10-05 12:01 | XMS_ITS | Patient Health Summary ---
Author Organization [facility] Address [address] [place] [address] Care Team Providers Care Bath Attendant Name Role Phone Wesley Jimenez MD Primary Care Provider [phone] Note from [facility],non-owned Affiliates and Associated Physician Practices is amultiple site organization consisting of ambulatory clinics and hospital sitesin [place], [place], [place] and [place]. This disclosure is being madepursuant to the Care Everywhere program and may not contain all information available regarding this patient. Last updated 18.[facility] Allergies * Sulfa Drugs Medications * Be aware that medications may not be up to date on this document. Alwaysverify current medications with the patient. * LEVOCETIRIZINE DIHYDROCHLORIDE PO * escitalopram (LEXAPRO) 5 MG/5ML oral solution Take 5 mg by mouth once daily Social History Tobacco Use Types Packs/Day Years Used Date Smoking Tobacco: Former Sex and Gender Information Value Date Recorded Sex Assigned at Not on file Gender Identity Not on file Sexual Orientation Not on file Last Filed Vital Signs Vital Sign Reading Time Taken Comments Blood Pressure 120/86 08/28/2016 10:42 AM BAG SHAKER Pulse 91 08/28/2016 10:42 AM BAG SHAKER Temperature 36.8 C (98.3 F) 08/28/2016 10:42 AM BAG SHAKER Respiratory Rate 16 08/28/2016 10:42 AM BAG SHAKER Oxygen Saturation 99% 08/28/2016 10:42 AM BAG SHAKER Inhaled Oxygen Concentration - - Weight 81.6 kg (180 lb) 08/28/2016 10:42 AM BAG SHAKER Height 152.4 cm (5') 08/28/2016 10:42 AM BAG SHAKER Body Mass Index 35.15 08/28/2016 10:42 AM BAG SHAKER Procedures * STREP A SCREEN - POINT OF CARE (AMB) STL(Performed 08/28/2016) Performed for Acute pharyngitis, unspecified etiology Results * STREP A SCREEN (08/28/2016) Strep A Rapid POCT Negative Negative Strep A Internal Control Present Lot # [id number] Expiration Date [id number] Throat ENTIRE THROAT (SURFACE REGION OF NECK) / Unknown 08/28/2016 Celeste Connolly HEARING AID FITTER-SECURE SOFTWARE ASSESSOR LAB - POINT OF CARE ORDERABLES Care Teams Bath Attendant Relationship Specialty Start Date End Date Wesley Jimenez MD PCP - General 03/03/22
--- OUTSIDE RECORDS SUMMARY | 2024-10-05 12:01 | XMS_ITS | Clinical Summary ---
Author Organization [facility] Address [address] [facility] [place] [address] Care Team Providers Care Dowel Sander Operator Name Role Phone Wesley Jimenez MD Primary Care Provider [phone] Source Comments [facility],non-owned Affiliates and Associated Physician Practices is amultiple site organization consisting of ambulatory clinics and hospital sitesin [place], [place], [place] and [place]. This disclosure is being madepursuant to the Care Everywhere program and may not contain all information available regarding this patient. Last updated 18.[facility] Allergies Active Allergy Reactions Criticality Noted Date Comments Sulfa Drugs 08/28/2016 Medications * Be aware that medications may not be up to date on this document. Alwaysverify current medications with the patient. Medication Sig Dispensed Refills Start Date End Date Status LEVOCETIRIZINE DIHYDROCHLORIDE PO Active escitalopram (LEXAPRO) 5 MG/5ML oral solution Take 5 mg by mouth once daily Active Social History Tobacco Use Types Packs/Day Years Used Date Smoking Tobacco: Former Sex and Gender Information Value Date Recorded Sex Assigned at Not on file Gender Identity Not on file Sexual Orientation Not on file Last Filed Vital Signs Vital Sign Reading Time Taken Comments Blood Pressure 120/86 08/28/2016 10:42 AM ASSIGNMENT AGENT Pulse 91 08/28/2016 10:42 AM ASSIGNMENT AGENT Temperature 36.8 C (98.3 F) 08/28/2016 10:42 AM ASSIGNMENT AGENT Respiratory Rate 16 08/28/2016 10:42 AM ASSIGNMENT AGENT Oxygen Saturation 99% 08/28/2016 10:42 AM ASSIGNMENT AGENT Inhaled Oxygen Concentration - - Weight 81.6 kg (180 lb) 08/28/2016 10:42 AM ASSIGNMENT AGENT Height 152.4 cm (5') 08/28/2016 10:42 AM ASSIGNMENT AGENT Body Mass Index 35.15 08/28/2016 10:42 AM ASSIGNMENT AGENT Plan of Treatment Health Maintenance Due Date Last Done Comments COLOGUARD (AGES 45-75) - COL ON CA SCREENING 1977 COLON MONITORING 1977 COLONOSCOPY - COLON CA SCREENING 1977 CT COLONOGRAPHY - COLON CA SCREENING 1977 Colorectal Cancer Screening 1977 FIT - COLON CA SCREENING 1977 FLEX SIG - COLON CA SCREENING 1977 LIPID TESTING 1977 MAMMOGRAM 1977 PAP SMEAR 1977 HIV SCREENING 1992 HEPATITIS C SCREENING 05/13/1995 DTAP/TDAP/TD VACCINES (1 - Tdap) 1996 HEPATITIS B VACCINE (1 of 3 - 19+ 3-dose series) 1996 COVID-19 VACCINE (1 - 2023-2 5 season) 2024 INFLUENZA VACCINE (#1) 2024 DEPRESSION SCREENING 08/16/2024 ZOSTER VACCINE (1 of 2) 2027 HIB VACCINE Aged Out No longer eligi ble based on patient's age to complete this topic HPV VACCINE Aged Out No longer eligi ble based on patient's age to complete this topic MENINGOCOCCAL (Group B) VACCINE Aged Out No longer eligible based on patient's age to complete this topic MENINGOCOCCAL VACCINE Aged Out No alma jv eligible based on patient's age to complete this topic PNEUMOCOCCAL VACCINE Aged Out No long er eligible based on patient's age to complete this topic Care Teams Dowel Sander Operator Relationship Specialty Start Date End Date Wesley Jimenez MD PCP - General 03/03/22
--- OUTSIDE RECORDS SUMMARY | 2024-10-05 12:01 | XMS_ITS | Encounter Summary ---
Author Organization [facility] Address [address] [place] [address] Phone Care Team Providers Care Molder Floor Name Role Phone Wesley Jimenez MD Primary Care Provider Homar Meraz MD Unavailable [phone] Manjula Turner MD Unavailable Reason for Visit * Reason Comments Medication Refill Encounter Details Date Type Department Care Team (Late st Contact Info) Description 06/27/2023 Refill [facility] [place] [phone] Wesley Jimenez MD [address] [address] Medication Refill Social History Tobacco Use Types Packs/Day Years Used Date Smoking Tobacco: Former Cigarettes 0.5 25 1 - 2014 Smokeless Tobacco: Never Alcohol Use Standard Drinks/Week Comments Yes 1 (1 standard drink = 0.6 oz pur e alcohol) PHQ-2 Answer Date Recorded Total Score - Questions 1-9 0 10/14 Education Answer Date Recorded What is the highest level of school you have completed or the highest degree you have received? Bachelor's degree (e.g., BA, AB, BS) 08/02/2020 Sexually Active Control Partners Comments Yes Male estrogen Slynd Comments No Sex and Gender Information Value Date Recorded Sex Assigned at Not on file Legal Sex Female 3:22 AM FLAT OPTICAL ELEMENT MAKER Gender Identity Not on file Sexual Orientation Not on file documented as of this encounter Miscellaneous Notes * Telephone Encounter - Jada Ann RN - 06/27/2023 1:03 PM FLAT OPTICAL ELEMENT MAKER Per nursing clinical judgement, provider to review and approve the medication(s) order(s) if appropriate. Requested Prescriptions Pending Prescriptions Disp Refills Advair Diskus 250-50 MCG/ACT AEROSOL POWDER, BREATH ACTIVATED [Pharmacy Med Name: ADVAIR 250-50 DISKUS] 180 Each 3 Sig: TAKE 1 PUFF BY MOUTH TWICE A DAY Inhaled Combinations Protocol Passed - 06/27/2023 1:01 PM Passed - Visit with relevant provider in past 12 months or upcoming 90 days Recent Visits Date Type Provider Dept 04/30/23 Office Visit Wesley Jimenez MD [facility] 10/28/22 Office Visit Wesley Jimenez MD [facility] Showing recent visits within past 365 days and meeting all other requirements Future Appointments Date Type Provider Dept 07/26/23 Appointment Wesley Jimenez MD [facility] Showing future appointments within next 90 days and meeting all other requirements Passed - Active short-acting beta agonist prescription OPTICAL ELEMENT MAKER documented in this encounter Plan of Treatment Upcoming Encounters Date Type Department Care Team (Late st Contact Info) Description 12/18/2024 12:30 PM CDT Office Visit [facility] [place] [address] Wesley Jimenez MD [address] [address] documented as of this encounter Visit Diagnoses Diagnosis Severe persistent asthma without complication documented in this encounter Additional Health Concerns Infection Onset Date Last Indicated Resolved Time Respiratory Rule-Out 08/02/2024 08/02/2024 024 8:26 AM FLAT OPTICAL ELEMENT MAKER COVID - 19 08/02/2024 08/02/2024 08/02/2024 8:26 AM FLAT OPTICAL ELEMENT MAKER Assessment Noted Time PHQ-9 Depression Total Score: 0 10/29/19 23 8:00 AM CDT documented as of this encounter Care Teams Molder Floor Relationship Specialty Start Date End Date Wesley Jimenez MD #2 [facility] [address] [place] [address] PCP - General Family Medicine 07/18/15 Homar Meraz MD #2 [facility] [address] [place] [address] Consulting Physician Obstetrics & Gynecology 03/23/19 Manjula Turner MD #2 [facility] [address] [place] [address] Consulting Physician Endocrinology 09/13/20 documented as of this encounter
--- OUTSIDE RECORDS SUMMARY | 2024-10-05 12:01 | XMS_ITS | Clinical Summary ---
Author Organization [facility] Address [address] [place] [address] Care Team Providers Care Drapery Hanger Name Role Phone Wesley Jimenez MD Primary Care Provider [phone] Homar Meraz MD Unavailable Manjula Turner MD Unavailable Allergies Active Allergy Reactions Criticality Noted Date Comments Other Unknown Seasonal Allergies Sulfa Antibiotics Rash Medications Levocetirizine Dihydrochloride 5 MG Tablet TAKE 1 TABLET BY MOUTH EVERY DAY 90 Tablet 10/25/19 21 Active Drospirenone (SLYND PO) Take by mouth. Acti ve cetirizine (ZyrTEC) 10 MG Tablet Take 10 mg by mouth daily. Active Fluticasone Furoate-Vilanterol (Breo Ellipta) 100-25 MCG/ACT AEROSOL POWDER, BREATH ACTIVATED take 1 Puff by inhalation daily. 1 Each 5 06/30/20 23 Active albuterol 108 (90 Base) MCG/ACT Aerosol Solution TAKE 1-2 PUFFS BY INHALATION EVERY 6 HOURS NEEDED FOR WHEEZING. 8.5 g 5 09/09/19 24 Active montelukast (SINGULAIR) 10 MG Tablet Take 1 Tablet by mouth daily. 90 Tablet 3 06/19/20 24 Active fluticasone-salmet dori (Advair Diskus) 250-50 MCG/ACT AEROSOL POWDER, BREATH ACTIVATEDIndicatio ns:Severe persistent asthma without complication take 1 Puff by inhalation 2 times daily. 180 Each 3 06/19/20 24 Active albuterol (PROVENTIL, VENTOLIN) (2.5 MG/3ML) 0.083% Nebulizer Soln 3 mL by Nebulization route every 4 hours as needed for Wheezing, Shortness of Breath or Cough. 360 mL 08/02/20 24 Active Benzonatate 200 MG Capsule Take 1 Capsule by mouth 3 times daily as needed for Cough. 30 Capsule 08/02/20 24 Active tirzepatide-weight management (Zepbound) 10 MG/0.5ML Solution Auto-injector 10 mg by Subcutaneous route once a week. 2 mL 10/03/19 25 Active tirzepatide-weight management (Zepbound) 7.5 MG/0.5ML Solution Auto-injector 7.5 mg by Subcutaneous route once a week. 2 mL 09/05/19 25 025 Discontin ued(Error ) Active Problems Problem Noted Date Diagnosed Date Screening for cervical cancer 07/01/2018 Seasonal allergies 12/28/2017 Screening mammogram, encounter for 12/28/2017 Major depressive disorder wi th single episode, in full remission 12/28/2017 Bronchitis 09/16/2016 Attention deficit hyperactiv ity disorder (ADHD), combined type 08/29/2015 Asthma Elevated liver function tests Encounters Date Type Department Care Team Description 10/03/2024 Telephone [facility]2 [place] [phone] Wesley Jimenez MD 10/02/2024 MyChart RX Renewal [facility] [address] [place] [address] Wesley Jimenez MD Medication Renewal Request 09/05/2024 MyChart RX Renewal [facility] [address] [place] [address] Wesley Jimenez MD Medication Renewal Request 08/03/2024 Telephone [facility] [address]2 [place] [address] Wesley Jimenez MD Prior Authorization 08/02/2024 8:15 AM RAT POISONER Office Visit [facility] [address] [place] [address] Lizz Richey PAC Sinusitis, unspecified chronicity, unspecified location (Primary Dx); Cough, unspecified type; Nasal congestion; Exacerbation of asthma, unspecified asthma severity, unspecified whether persistent Discharge Disposition: Discharged to home or Selfcare 08/02/2024 MyChart RX Renewal [facility] #[address] [place] [address] Wesley Jimenez MD Medication Renewal Declined 08/02/2024 Travel 08/01/2024 Nurse Triage [facility] [address] [place] [phone] Wesley Jimenez MD Appointment; Cough; Sinus Problem from Last 3 Months Immunizations Immunization Administration Dates Next Due Covid-19, Mrna, Lnp-s, Pf, 3 0 Mcg/0.3 Ml Dose ([employer]) 07/04/2021 Influenza Vaccine 06/19/2024 Influenza Vaccine greater than 3 yrs 07/28/2015, 05/16/2011 Influenza Vaccine, Quadrivalent, PF 04/16,04/30/2022,08/27/2020,07/03,07/01/2018,06/30/2017 Influenza,Split Virus,Trivalent,Injectable,PF 06/19/2024 PUR TDAP 7+ YRS IM 07/29/2015 Pneumococcal Vaccine Adult - 23 Valent 2 Pneumococcal conjugate PCV20 , polysaccharide [id number] conjugate, adjuvant, PF 04/30/2022 TD VACCINE 09/16/2011 Family History Medical History Relation Name Comments Cancer Father luekemia Diabetes Father Hypertension Mother Relation Name Status Comments Father Mother Alive Social History Tobacco Use Types Packs/Day Years Used Date Smoking Tobacco: Former Cigarettes 0.5 25 1 0 - 2014 Smokeless Tobacco: Never Tobacco Cessation:Counseling Given: No Alcohol Use Standard Drinks/Week Comments Yes 1 (1 standard drink = 0.6 oz pur e alcohol) [facility] Utilities Answer Date Recorded In the past 12 months has th e electric, gas, oil, or water company threatened to shut off services in your home? No 10/25/2023 Social Connection and Isolat ion Panel [NHANES] Answer Date Recorded In a typical week, how many times do you talk on the phone with family, friends, or neighbors? More than three times a week 10/25/2023 How often do you get togethe r with friends or relatives? Once a week 10/25/2023 How often do you attend chur ch or congregational services? More than 4 times per year 10/25/2023 Do you belong to any clubs o r organizations such as temple groups, unions, fraternal or athletic groups, or school groups? Yes 10/25/2023 How often do you attend meet ings of the clubs or organizations you belong to? 1 to 4 times per year 10/25/2023 Are you , , di vorced, , never , or living with a partner? 10/25/2023 AUDIT-C Answer Date Recorded Q1: How often do you have a drink containing alc ohol? 2-3 times a week 10/25/2023 Q2: How many drinks containi ng alcohol do you have on a typical day when you are drinking? 3 or 4 10/25/2023 Q3: How often do you have si x or more drinks on one occasion? Less than monthly 10/25/2023 Overall Financial Resource Strain (CARDIA) Answe r Date Recorded How hard is it for you to pa y for the very basics like food, housing, medical care, and heating? Not hard at all 10/25/2023 PHQ-2 Answer Date Recorded Total Score - Questions 1-9 0 07/16 [facility] - Occupational Stress Questionnaire Answer Date Recorded Do you feel stress - tense, restless, nervous, or anxious, or unable to sleep at night because your mind is troubled all the time - these days? To some extent 10/25/2023 Exercise Vital Sign Answer Date Recorde d On average, how many days pe r week do you engage in moderate to strenuous exercise (like a brisk walk)? 3 days 10/25/2023 On average, how many minutes do you engage in exercise at this level? 20 min 10/25/2023 Hunger Vital Sign Answer Date Recorded Within the past 12 months, y ou worried that your food would run out before you got the money to buy more. Never true 10/25/19 24 Within the past 12 months, t he food you bought just didn't last and you didn't have money to get more. Never true 10/25/2023 PRAPARE - Transportation Answer Date Re corded In the past 12 months, has l ack of transportation kept you from medical appointments or from getting medications? No 10/14 In the past 12 months, has l ack of transportation kept you from meetings, work, or from getting things needed for daily living? No 10/25/2023 Housing Stability Vital Sign Answer Ishan e Recorded In the last 12 months, was t here a time when you were not able to pay the mortgage or rent on time? No 10/25/2023 In the last 12 months, how many places have you lived? 1 10/25/2023 In the last 12 months, was t here a time when you did not have a steady place to sleep or slept in a senior living (including now)? No 10/25/2023 Education Answer Date Recorded What is the highest level of school you have completed or the highest degree you have received? Bachelor's degree (e.g., BA, AB, BS) 08/02/2020 Sexually Active Control Partners Comments Yes Male estrogen Slynd Comments No Sex and Gender Information Value Date Recorded Sex Assigned at Not on file Legal Sex Female 3:22 AM RAT POISONER Gender Identity Not on file Sexual Orientation Not on file Last Filed Vital Signs Vital Sign Reading Time Taken Comments Blood Pressure 122/82 08/02/2024 7:57 AM RAT POISONER Pulse 104 08/02/2024 7:57 AM RAT POISONER Temperature 36.7 C (98.1 F) 08/02/2024 7:57 AM RAT POISONER Respiratory Rate 16 06/19/2024 2:18 PM RAT POISONER Oxygen Saturation 96% 08/02/2024 7:57 AM RAT POISONER Inhaled Oxygen Concentration - - Weight 81.6 kg (180 lb) 08/02/2024 7:57 AM RAT POISONER Height 154.9 cm (5' 1 ) 08/02/2024 7:57 AM RAT POISONER Body Mass Index 34.01 08/02/2024 7:57 AM RAT POISONER Plan of Treatment Upcoming Encounters Date Type Department Care Team (Late st Contact Info) Description 12/18/2024 12:30 PM CDT Office Visit [facility] [address] [place] [address] Wesley Jimenez MD [address] [address] Health Maintenance Due Date Last Done Comments Hepatitis C Virus (HCV) Screening 1977 Hepatitis B Immunization (1 of 3 - 19+ 3-dose series) 1996 HPV/Cotest 2007 SARS-COV-2 Immunization (2023- season) 2024 07/04/2021, 10/21/2020 Cervical Cancer Screening (CCS) 05/28/2024 Pap Smear 05/28/2024 05/28/2021, 08/18/2018 Mammogram 08/03/2024 08/03/2023, 02/07/2018 Td Immunization Every 10 Years (Adults With 1 Tdap) 07/29/2025 07/29/2015, 09/16/2011 Colonoscopy 05/11/2033 05/11/2023 Colorectal Cancer Screening 05/11/2033 Respiratory Syncytial Virus (RSV) Immunization (Adult) (1 - 1-dose 75+ series) 2052 05/11/2023 Pneumococcal Immunization Combined Completed 04/30/2022, 09/16/2011 Discussion re Starting/Frequency of Mammograms Completed 08/03/2023, 06/19/2022, 10/20/2021, Additional history exists Influenza Immunization Completed , 06/19/2024, 04/30/2023, Additional history exists Meningococcal Immunization (ACWY) Aged Out No longer eligible based on patient's age to complete this topic Rotavirus Immunization Aged Out No lo nger eligible based on patient's age to complete this topic Procedures Procedure Name Priority Date/Time Associated Diagnosis Comments POC INFLUENZA A AND B BY MOLECULAR Routine 08/02/2024 8:16 AM RAT POISONER Nasal congestion POC SARS-COV-2 BY MOLECULAR Routine 08/02/2024 8:15 AM RAT POISONER Cough, unspecified type MAMMOGRAM BILATERAL GENERIC 08/03/2023 12:00 AM RAT POISONER PATHOLOGY CYTOLOGY HYDROELECTRIC PLANT TECHNICIAN Routine 08/18/2018 from Last 3 Months or Most Recently Relevant to Health Maintenance Results * POC INFLUENZA A AND B BY MOLECULAR (08/02/2024 8:16 AM RAT POISONER) INFLUENZA A RNA Negative Negative, Invalid INFLUENZA B RNA Negative Negative, Invalid PROCEDURE CONTROL Valid 08/02/2024 8:16 AM RAT POISONER Lizz Chengcitlali PAC POINT OF CARE TESTING (M ANUAL) Final Result * POC SARS-COV-2 BY MOLECULAR (08/02/2024 8:15 AM RAT POISONER) SARSCOV2 Negative Negative, INVALID PROCEDURE CONTROL Valid 08/02/2024 8:15 AM RAT POISONER Lizz Chengcitlali PAC POINT OF CARE TESTING (M ANUAL) Final Result * MAMMOGRAM BILATERAL MISCELLANEOUS (08/03/2023 12:00 AM RAT POISONER) 08/03/2023 us Provider Scan IMG MAMMO ORDERABLES Final Resul t SCAN * PATHOLOGY CYTOLOGY HYDROELECTRIC PLANT TECHNICIAN (08/18/2018) Specimen of unknown material (specimen) Ana Manzo APRN, KIERA PATHOLOGY/CYTOLOGY ANA ZAVALA Final Result from Last 3 Months or Most Recently Relevant to Health Maintenance Insurance [facility] O[facility] Care Teams Drapery Hanger Relationship Specialty Start Date End Date Wesley Jimenez MD #2 [facility] [address] [place] [address] PCP - General Family Medicine 07/18/15 Homar Meraz MD #2 [facility] [address] [place] [address] Consulting Physician Obstetrics & Gynecology 03/23/19 Manjula Turner MD #[address] [id number] Consulting Physician Endocrinology 09/13/20
--- OUTSIDE RECORDS SUMMARY | 2024-10-05 12:01 | XMS_ITS | Encounter Summary ---
Author Organization [facility] Address [address] [place] [address] Phone Care Team Providers Care Learning Design Specialist Name Role Phone Wesley Jimenez MD Primary Care Provider [phone] Homar Meraz MD Unavailable [phone] Manjula Turner MD Unavailable Reason for Visit * Reason Onset Date Comments Medication Refill 10/02/2024 Encounter Details Date Type Department Care Team (Late st Contact Info) Description 10/02/2024 MyChart RX Renewal [facility] [place] [address] Wesley Jimenez MD #[address] [address] Medication Renewal Request Social History Tobacco Use Types Packs/Day Years Used Date Smoking Tobacco: Former Cigarettes 0.5 25 1 990 - 2015 Smokeless Tobacco: Never Alcohol Use Standard Drinks/Week Comments Yes 1 (1 standard drink = 0.6 oz pur e alcohol) [facility] Utilities Answer Date Recorded In the past 12 months has e electric, gas, oil, or water company [...] 10/25/2023 How often do you attend chur or alevism services? More than 4 times per year 10/25/2023 Do you belong to any clubs o r organizations such as jehovah's witness groups, unions, fraternal or athletic groups, or [...] Total Score - Questions 1-9 0 07/16 [facility] - Occupational Stress Questionnaire Answer Date Recorded [...] place to sleep or slept in a m[facility]p (including now)? No 10/25/2023 Education Answer Date Recorded What is the highest level of school you have completed or the highest degree you have received? Bachelor's degree (e.g., BA, AB, BS) 08/02/2020 Sexually Active Control Partners Comments Yes Male estrogen Slynd Comments No Sex and Gender Information Value Date Recorded Sex Assigned at Not on file Legal Sex Female 3:22 AM VESSEL SLAG WORKER Gender Identity Not on file Sexual Orientation Not on file documented as of this encounter Miscellaneous Notes * Telephone Encounter - Wesley Jimenez MD - 10/03/2024 10:34 AM CST I shall call in higher dose. In November will go higher if your side effects are okay. Let me know EL SLAG WORKER * Telephone Encounter - Ynes Jeffrey RN - 10/03/2024 10:20 AM CST Patient is on 7.5 mg weekly - see notes below - do you want to increase to 10 mg weekly OR have hercontinue the 7.5 mg? EL SLAG WORKER documented in this encounter Plan of Treatment Upcoming Encounters Date Type Department Care Team (Late st Contact Info) Description 12/18/2024 12:30 PM CDT Office Visit [facility] [place] [address] Wesley Jimenez MD #[address] [address] documented as of this encounter Visit Diagnoses Not on filedocumented in this encounter Additional Health Concerns Assessment Noted Time PHQ-9 Depression Total Score: 0 08/02/20 24 8:02 AM VESSEL SLAG WORKER documented as of this encounter Care Teams Learning Design Specialist Relationship Specialty Start Date End Date Wesley Jimenez MD [address] [address] PCP - General Family Medicine 07/18/15 Homar Meraz MD #[address] [address] Consulting Physician Obstetrics & Gynecology 03/23/19 Manjula Turner MD #[address] [address] Consulting Physician Endocrinology 09/13/20 documented as of this encounter
--- OUTSIDE RECORDS SUMMARY | 2024-10-05 12:01 | XMS_ITS | Referral Summary ---
Author Organization [facility] Address [address] [place] [address] Care Team Providers Care Site Lead Name Role Phone Wesley Jimenez MD Primary Care Provider [phone] Source Comments [facility] [facility],non-owned Affiliates and Associated Physician Practices is amultiple site organization consisting of ambulatory clinics and hospital sitesin [place], [place], [place] and [place]. This disclosure is being madepursuant to the Care Everywhere program and may not contain all information available regarding this patient. Last updated 18.[facility] Allergies Active Allergy Reactions Criticality Noted Date [...] Comments Blood Pressure 120/86 08/28/2016 10:42 AM AUTO TRANSMISSION MECHANIC Pulse 91 08/28/2016 10:42 AM AUTO TRANSMISSION MECHANIC Temperature 36.8 C (98.3 F) 08/28/2016 10:42 AM AUTO TRANSMISSION MECHANIC Respiratory Rate 16 08/28/2016 10:42 AM AUTO TRANSMISSION MECHANIC Oxygen Saturation 99% 08/28/2016 10:42 AM AUTO TRANSMISSION MECHANIC Inhaled Oxygen Concentration - - Weight 81.6 kg (180 lb) 08/28/2016 10:42 AM AUTO TRANSMISSION MECHANIC Height 152.4 cm (5') 08/28/2016 10:42 AM AUTO TRANSMISSION MECHANIC Body Mass Index 35.15 08/28/2016 10:42 AM AUTO TRANSMISSION MECHANIC Plan of Treatment Not on file Care Teams Site Lead Relationship Specialty Start Date End Date Wesley Jimenez MD PCP - General 03/03/22
--- OUTSIDE RECORDS SUMMARY | 2024-10-05 12:01 | XMS_ITS | Encounter Summary ---
Author Organization [facility] Address [address] [place] [address] Phone Care Team Providers Care Credit Control Officer Name Role Phone Wesley Jimenez MD Primary Care Provider [phone] Homar Meraz MD Unavailable [phone] Manjula Turner MD Unavailable Reason for Visit * Reason Comments Medication Refill Encounter Details Date Type Department Care Team (Late st Contact Info) Description 01/28/2024 Refill [facility] - Family Medicine [facility] #2 [place] [phone] Wesley Jimenez MD [address] [address] Medication Refill Social History Tobacco Use Types Packs/Day Years Used Date Smoking Tobacco: Former Cigarettes 0.5 25 1 - 2014 Smokeless Tobacco: Never Alcohol Use Standard Drinks/Week Comments Yes 1 (1 standard drink = 0.6 oz pur e alcohol) [facility] Utilities Answer Date Recorded In the past [...] How often do you attend chur or baptist services? More than 4 times per year 10/25/2023 Do you belong to any clubs o r organizations such as jainism groups, unions, fraternal or athletic groups, or [...] Recorded Total Score - Questions 1-9 0 01/14 [facility] - Occupational Stress [...] place to sleep or slept in a snf (including now)? No 10/25/2023 Education Answer Date Recorded What is the highest level of school you have completed or the highest degree you have received? Bachelor's degree (e.g., BA, AB, BS) 08/02/2020 Sexually Active Control Partners Comments Yes Male estrogen Slynd Comments No Sex and Gender Information Value Date Recorded Sex Assigned at Not on file Legal Sex Female 3:22 AM FOOD MIXER Gender Identity Not on file Sexual Orientation Not on file documented as of this encounter Miscellaneous Notes * Telephone Encounter - Ynes Jeffrey RN - 01/28/2024 12:00 PM CDT Medication failed the protocol, provider to review and approve the medication order if appropriate. Requested Prescriptions Pending Prescriptions Disp Refills Wegovy 1 MG/0.5ML Solution Auto-injector [Pharmacy Med Name: Wegovy 1 MG/0.5ML Subcutaneous Solution Auto-injector] 4 mL 0 Sig: INJECT 1MG SUBCUTANEOUSLY ONCE A WEEK Not Delegated - Anti-Obesity Agents Protocol Failed - 01/28/2024 9:04 AM Failed - This refill cannot be delegated Passed - Visit with relevant provider in past 12 months or upcoming 90 days Recent Visits Date Type Provider Dept 10/25/23 Office Visit Wesley Jimenez MD [facility] 07/26/23 Office Visit Wesley Jimenez MD [facility] 04/30/23 Office Visit Wesley Jimenez MD [facility] Showing recent visits within past 365 days and meeting all other requirements Future Appointments Date Type Provider Dept 02/01/24 Appointment Wesley Jimenez MD [facility] Showing future appointments within next 90 days and meeting all other requirements documented in this encounter Plan of Treatment Upcoming Encounters Date Type Department Care Team (Late st Contact Info) Description 12/18/2024 12:30 PM CDT Office Visit [facility] Medical [facility] - Family [facility] #2 [place] [address] Wesley Jimenez MD #[address] [address] documented as of this encounter Visit Diagnoses Not on filedocumented in this encounter Additional Health Concerns Infection Onset Date Last Indicated Resolved Time Respiratory Rule-Out 08/02/2024 08/02/2024 024 8:26 AM FOOD MIXER COVID - 19 08/02/2024 08/02/2024 08/02/2024 8:26 AM FOOD MIXER Assessment Noted Time PHQ-9 Depression Total Score: 0 10/25/19 24 3:42 PM CDT documented as of this encounter Care Teams Credit Control Officer Relationship Specialty Start Date End Date Wesley Jimenez MD #[address] [address] PCP - General Family Medicine 07/18/15 Homar Meraz MD #[address] [address] Consulting Physician Obstetrics & Gynecology 03/23/19 Manjula Turner MD #[address] [address] Consulting Physician Endocrinology 09/13/20 documented as of this encounter
== END 2024-10-05 11:55 | disposition home or self-care (01) ==
PROVIDERS: PCP Internal Medicine; Visit Provider Obstetrics & Gynecology
DX: Z12.31 Encounter for screening mammogram for malignant neoplasm of breast (principal)
CPT/HCPCS: 77063; 77067

== ENCOUNTER 2025-02-26 08:28 | Outpatient (CLI) | payer OTHER, SELFPAY ==
--- NOTE | ~2025-02-26 | XR_ITS ---
XR hand LT min 3V Ordering provider: Abdiaziz Herr MD History: . Numbness X 3 weeks, 1st digit . Comparison: None. FINDINGS: BONES: No acute fracture or dislocation. JOINT SPACES: Mild osteoarthritic changes of the first carpometacarpal joint. Otherwise, Well maintai tj. SOFT TISSUES: Unremarkable. IMPRESSION: No acute osseous abnormality left hand. Osteoarthritic changes of the first carpometacarpal joint. Reviewed, dictated and finalized at location A.
--- OUTSIDE RECORDS SUMMARY | 2025-02-26 08:37 | XMS_ITS | Encounter Summary ---
Author Organization [facility] Address [address] [place] [address] Phone Care Team Providers Care Visual Presentation Manager Name Role Phone Wesley Jimenez MD Primary Care Provider [phone] Homar Meraz MD Unavailable [phone] Manjula Turner MD Unavailable Reason for Visit * Reason Comments Medication Refill Encounter Details Date Type Department Care Team (Late st Contact Info) Description 06/27/2023 Refill [facility] Family Medicine [facility] #2 [place] [phone] Wesley Jimenez MD #[address] [address] Medication Refill Social History Tobacco Use Types [...] on file Legal Sex Female 3:22 AM CLAY MINER Gender Identity Not on file Sexual Orientation Not on file documented as of this encounter Miscellaneous Notes * Telephone Encounter - Jada Ann RN - 06/27/2023 1:03 PM CLAY MINER Per nursing clinical judgement, provider to review [...] Office Visit Wesley Jim[facility] 10/28/22 Office Visit Wesley Jimenez MD [facility] Showing recent visits within past 365 days and meeting all other requirements Future Appointments Date Type Provider Dept 07/26/23 Appointment Wesley Jimenez MD [facility] Showing future appointments within next 90 days and meeting all other requirements Passed - Active short-acting beta agonist prescription MINER documented in this encounter Plan of Treatment Upcoming Encounters Date Type Department Care Team (Late st Contact Info) Description 06/18/2025 10:30 AM CLAY MINER Office Visit [facility] Medical [facility] - Family Medicine [facility] #2 [place] [address] Wesley Jimenez MD #[address] [address] documented as of this encounter Visit Diagnoses Diagnosis Severe persistent asthma without complication documented in this encounter Additional Health Concerns Infection Onset Date Last Indicated Resolved Time Respiratory Rule-Out 08/02/2024 08/02/2024 024 8:26 AM CLAY MINER COVID - 19 08/02/2024 08/02/2024 08/02/2024 8:26 AM CLAY MINER Assessment Noted Time PHQ-9 Depression Total Score: 0 10/29/19 23 8:00 AM CDT documented as of this encounter Care Teams Visual Presentation Manager Relationship Specialty Start Date End Date Wesley Jimenez MD #[address] [facility] [address] [place] [address] PCP - General Family Medicine 07/18/15 Homar Meraz MD #[address] [facility] [address] [place] [address] Consulting Physician Obstetrics & Gynecology 03/23/19 Manjula Turner MD #[address] [facility] [address] [place] [address] Consulting Physician Endocrinology 09/13/20 documented as of this encounter
--- OUTSIDE RECORDS SUMMARY | 2025-02-26 08:37 | XMS_ITS | Encounter Summary ---
Author Organization [facility] Address [address] [facility] [place] [place] [address] Phone Care Team Providers Care Machine Maintenance Supervisor Name Role Phone Wesley Jimenez MD Primary Care Provider [phone] Homar Meraz MD Unavailable [phone] Manjula Turner MD Unavailable Reason for Referral * Radiology Services (Routine) - Closed Specialty Diagnoses / Procedures Referred By Josefa montelongo Referred To Contact Radiology Diagnoses Thyroid nodule greater than or equal to 1.5 cm in diameter incidentally noted on imaging study Procedures US GUIDANCE AND THYROID BIOPSY Wesley Jimenez MD [address] [address] Phone: tel: fax: Referral ID Status Reason Start Date Expiration Date Visits Re quested Visits Authorized [id number] Closed 08/27/2020 1 1 CORPORATE PARTNERSHIPS Reason for Visit * Reason Onset Date Comments Need Order 08/27/2020 PFT Results 08/27/2020 Encounter Details Date Type Department Care Team ([facility] st Contact Info) Description 08/27/2020 Telephone [facility] [address] [place] [phone] Wesley Jimenez MD [address] [address] Need Order (PFT); Results Social History Tobacco [...] on file Legal Sex Female 3:22 AM VP CORPORATE PARTNERSHIPS Gender Identity Not on file Sexual Orientation Not on file COVID-19 Exposure Response Date Recorded In the last month, have you been in contact with someone who was confirmed or suspected to have Coronavirus / COVID-19? Yes 08/30/2020 8:14 AM VP CORPORATE PARTNERSHIPS documented as of this encounter Miscellaneous Notes [...] that she remembers Routing as FYI only- CORPORATE PARTNERSHIPS * Telephone Encounter - Wesley Jimenez MD - 08/27/2020 6:29 PM CST Please call. I ordered a biospy of your thyroid. Ultrasound shows nodule on your right thyroid gland CORPORATE PARTNERSHIPS * Telephone Encounter - Lilli Armando - [...] that the only test you were wanting? CORPORATE PARTNERSHIPS documented in this encounter Plan of Treatment Upcoming Encounters Date Type Department Care Team (Late st Contact Info) Description 06/18/2025 10:30 AM VP CORPORATE PARTNERSHIPS Office Visit [facility] Medical [facility] - Family Medicine [facility] [address] [place] [address] Wesley Jimenez MD [address] [address] Scheduled Orders Name Type Priority Associated Diagnoses [...] 19 Confirmed 08/14/2020 08/14/2020 021 12:18 AM VP CORPORATE PARTNERSHIPS COVID - 19 Confirmed 09/16/2020 09/16/2020 021 12:18 AM VP CORPORATE PARTNERSHIPS Respiratory Rule-Out 08/02/2024 08/02/2024 024 8:26 AM VP CORPORATE PARTNERSHIPS COVID - 19 08/02/2024 08/02/2024 08/02/2024 8:26 AM VP CORPORATE PARTNERSHIPS Assessment Noted Time PHQ-9 Depression Total Score: 0 08/27/19 21 7:21 AM VP [employer]PORATE PARTNERSHIPS documented as of this encounter Care Teams Machine Maintenance Supervisor Relationship Specialty Start Date End Date Wesley Jimenez MD #2 [facility] [address] [place] [address] PCP - General Family Medicine 07/18/15 Homar Meraz MD #2 [facility] [address] [place] [address] Consulting Physician Obstetrics & Gynecology 03/23/19 Manjula Turner MD #[address] [address] Consulting Physician Endocrinology 09/13/20 documented as of this encounter
--- OUTSIDE RECORDS SUMMARY | 2025-02-26 08:37 | XMS_ITS | Encounter Summary ---
Author Organization [facility] Address [address] 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 Gender Identity Not on file Sexual Orientation [...] Dept 07/26/23 Office Visit Wesley Jimenez MD [facility] 04/30/23 Office Visit Wesley Jimenez MD [facility] 10/28/22 Office Visit [facility] Show[facility] recent visits within past 365 days and meeting all other requirements Future Appointments Date Type Provider Dept 10/25/23 Appointment Wesley Jimenez MD [facility] [place] Showing future appointments within next 90 days and meeting all other requirements L WORKER HELPER documented in this encounter Plan of Treatment Upcoming Encounters Date Type Department Care Team (Late st Contact Info) Description 06/18/2025 10:30 AM STILL WORKER HELPER Office Visit [facility] Medical Group - Family Medicine - [place] [address] [place] [address] Wesley Jimenez MD [address] [address] documented as of this encounter Visit Diagnoses Diagnosis Obesity (BMI 30-39.9) Obesity, unspecified documented in this encounter Additional Health Concerns Infection Onset Date Last Indicated Resolved Time Respiratory Rule-Out 08/02/2024 08/02/2024 024 8:26 AM STILL WORKER HELPER COVID - 19 08/02/2024 08/02/2024 08/02/2024 8:26 AM STILL WORKER HELPER Assessment Noted Time PHQ-9 Depression Total Score: 0 07/26/20 23 2:36 PM STILL WORKER HELPER documented as of this encounter Care Teams Position Classifier Relationship Specialty Start Date End Date Wesley Jimenez MD #2 [facility] [address] [place] [address] PCP - General Family Medicine 07/18/15 Homar Meraz MD #2 [facility] [address] [place] [address] Consulting Physician Obstetrics & Gynecology 03/23/19 Manjula Turner MD #2 [facility] [address] [place] [address] Consulting Physician Endocrinology 09/13/20 documented as of this encounter
--- OUTSIDE RECORDS SUMMARY | 2025-02-26 08:37 | XMS_ITS | Clinical Summary ---
Author Organization [facility] Address [address] [facility] [place] [address] Care Team Providers Care Melt Superintendant Name Role Phone Wesley Jimenez MD Primary Care Provider [phone] Source Comments [facility],non-owned Affiliates and Associated Physician Practices is amultiple site organization consisting of ambulatory clinics and hospital sitesin [place], [place] and [place]. This disclosure is being madepursuant to the Care Everywhere program and may not contain all information available regarding this patient. Last updated 18.[facility] [employer] Allergies Active Allergy Reactions Criticality Noted Date Comments Sulfa Drugs 08/28/2016 Medications * Be aware that medications may not be up to date on this document. Alwaysverify current medications with the patient. LEVOCETIRIZINE DIHYDROCHLORIDE PO A ctive escitalopram (LEXAPRO) 5 MG/5ML oral solution Take 5 mg by mouth once daily Active Social History Tobacco Use Types Packs/Day Years Used Date Smoking Tobacco: Former Comments Unknown Sex and Gender Information Value Date Recorded Sex Assigned at Not on file Legal Sex Female 8:54 AM VICE PRESIDENT SALES AND MARKETING Gender Identity Not on file Sexual Orientation Not on file Last Filed Vital Signs Vital Sign Reading Time Taken Comments Blood Pressure 120/86 08/28/2016 10:42 AM VICE PRESIDENT SALES AND MARKETING Pulse 91 08/28/2016 10:42 AM VICE PRESIDENT SALES AND MARKETING Temperature 36.8 C (98.3 F) 08/28/2016 10:42 AM VICE PRESIDENT SALES AND MARKETING Respiratory Rate 16 08/28/2016 10:42 AM VICE PRESIDENT SALES AND MARKETING Oxygen Saturation 99% 08/28/2016 10:42 AM VICE PRESIDENT SALES AND MARKETING Inhaled Oxygen Concentration - - Weight 81.6 kg (180 lb) 08/28/2016 10:42 AM VICE PRESIDENT SALES AND MARKETING Height 152.4 cm (5') 08/28/2016 10:42 AM VICE PRESIDENT SALES AND MARKETING Body Mass Index 35.15 08/28/2016 10:42 AM VICE PRESIDENT SALES AND MARKETING Plan of Treatment Health Maintenance Due Date Last Done Comments COLOGUARD (AGES 45-75) - COL ON CA SCREENING 1977 COLON MONITORING 1977 COLONOSCOPY - COLON CA SCREENING 1977 CT COLONOGRAPHY - COLON CA SCREENING 1977 Colorectal Cancer Screening 1977 FIT - COLON CA SCREENING 1977 FLEX SIG - COLON CA SCREENING 1977 LIPID TESTING 1977 MAMMOGRAM 1977 HIV SCREENING 1992 HEPATITIS C SCREENING 05/13/1995 DTAP/TDAP/TD VACCINES (1 - Tdap) 1996 HEPATITIS B VACCINE (1 of 3 - 19+ 3-dose series) 1996 COVID-19 VACCINE (1 - 2023-2 5 season) 2024 DEPRESSION SCREENING 08/16/2024 INFLUENZA VACCINE (#1) 2025 ZOSTER VACCINE (1 of 2) 2027 HIB VACCINE Aged Out No longer eligi ble based on patient's age to complete this topic HPV VACCINE Aged Out No longer eligi ble based on patient's age to complete this topic MENINGOCOCCAL (Group B) VACC INE SHARED DECISION-MAKING Aged Out No longer eligibl e based on patient's age to complete this topic MENINGOCOCCAL GROUPS A/C/Y/W VACCINE Aged Out No longer eligible b ased on patient's age to complete this topic PNEUMOCOCCAL VACCINE Aged Out No long er eligible based on patient's age to complete this topic [place] [facility] [place] Address: [facility] [address] [place] [address] [employer] Care Teams Melt Superintendant Relationship Specialty Start Date End Date Wesley Jimenez MD PCP - General 03/03/22
--- OUTSIDE RECORDS SUMMARY | 2025-02-26 08:37 | XMS_ITS | Encounter Summary ---
Author Organization [facility] Address [address] 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 Showing recent visits within past 365 days and meeting all other requirements Future Appointments Date Type Provider Dept 10/25/23 Appointment Wesley Jimenez MD [facility] Showing future appointments within next 90 days and meeting all other requirements CAR MECHANIC documented in this encounter Plan of Treatment Upcoming Encounters Date Type Department Care Team (Late st Contact Info) Description 06/18/2025 10:30 AM MINE CAR MECHANIC Office Visit [facility] - Family [facility] - [place] [address] [place] [address] Wesley Jimenez MD [address] [place] [address] documented as of this encounter Visit Diagnoses Not on filedocumented in this encounter Additional Health Concerns Infection Onset Date Last Indicated Resolved Time Respiratory Rule-Out 08/02/2024 08/02/2024 024 8:26 AM MINE CAR MECHANIC COVID - 19 08/02/2024 08/02/2024 08/02/2024 8:26 AM MINE CAR MECHANIC Assessment Noted Time PHQ-9 Depression Total Score: 0 07/26/20 23 2:36 PM MINE CAR MECHANIC documented as of this encounter Care Teams Nursing Executive Relationship Specialty Start Date End Date Wesley Jimenez MD #2 [facility] [address] [place] [address] PCP - General Family Medicine 07/18/15 Homar Meraz MD #2 [facility] [address] [place] [address] Consulting Physician Obstetrics & Gynecology 03/23/19 Manjula Turner MD #2 [facility] [address] [place] [address] Consulting Physician Endocrinology 09/13/20 documented as of this encounter
--- OUTSIDE RECORDS SUMMARY | 2025-02-26 08:37 | XMS_ITS | Encounter Summary ---
Author Organization [facility] Address [address] [place] [address] Phone Care Team Providers Care Upkeep Mechanic Name Role Phone Wesley Jimenez MD Primary Care Provider [phone] Homar Meraz MD Unavailable [phone] Manjula Turner MD Unavailable Reason for Visit * Reason Comments Medication Refill Encounter Details Date Type Department Care Team (Late st Contact Info) Description 05/03/2020 [facility] [address] [place] [address] Wesley Jimenez MD #[address] [address] Medication Refill Social History Tobacco Use Types [...] on file Legal Sex Female 3:22 AM 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 CLUB MANAGER Gender Identity Not on file Sexual Orientation [...] st Contact Info) Description 06/18/2025 10:30 AM BRIDGE CLUB MANAGER Office Visit [facility] Medical Group - Family Medicine [facility] #2 [place] [address] Wesley Jimenez MD #[address] [address] documented as of this encounter Visit Diagnoses Diagnosis Severe persistent asthma without complication documented in this encounter Additional Health Concerns Infection Onset Date Last Indicated Resolved Time COVID - 19 Confirmed 08/14/2020 08/14/2020 021 12:18 AM BRIDGE CLUB MANAGER COVID - 19 Confirmed 09/16/2020 09/16/2020 021 12:18 AM BRIDGE CLUB MANAGER Respiratory Rule-Out 08/02/2024 08/02/2024 024 8:26 AM BRIDGE CLUB MANAGER COVID - 19 08/02/2024 08/02/2024 08/02/2024 8:26 AM BRIDGE CLUB MANAGER Assessment Noted Time PHQ-9 Depression Total Score: 0 07/03/20 8:37 AM BRIDGE CLUB MANAGER documented as of this encounter Care Teams Upkeep Mechanic Relationship Specialty Start Date End Date Wesley Jimenez MD #[address] [address] PCP - General Family Medicine 07/18/15 Homar Meraz MD #[address] [facility] [address] [place] [address] Consulting Physician Obstetrics & Gynecology 03/23/19 Manjula Turner MD [address] [facility] [address] [place] [address] Consulting Physician Endocrinology 09/13/20 documented as of this encounter
--- OUTSIDE RECORDS SUMMARY | 2025-02-26 08:37 | XMS_ITS | Encounter Summary ---
Author Organization [facility] Address [address] [place] [address] Phone Care Team Providers Care Lunch Counter Manager Name Role Phone Wesley Jimenez MD Primary Care Provider [phone] Homar Meraz MD Unavailable [phone] Manjula Turner MD Unavailable Reason for Visit * Reason Comments Medication Refill Encounter Details Date Type Department Care Team (Late st Contact Info) Description 01/28/2024 Refill [facility] - Family Medicine [facility] [address] [place] [phone] Wesley Jimenez MD [address] [address] Medication Refill Social History Tobacco Use Types Packs/Day Years Used Date Smoking Tobacco: Former Cigarettes 0.5 25 1 - 2014 Smokeless Tobacco: Never Alcohol Use Standard Drinks/Week Comments Yes 1 (1 standard drink = 0.6 oz pur e alcohol) [facility] Utilities Answer Date Recorded In the past 12 months has e electric, gas, oil, or water company threatened to shut off services in your home? No 10/25/2023 Social Connection and Isolation Panel Answer Date Recorded In a typical week, how many times do you talk on the phone with family, friends, or neighbors? More than three times a week 10/25/2023 How often do you get togethe r with friends or relatives? Once a week 10/25/2023 How often do you attend chur ch or hoahaoism services? More than 4 times per year 10/25/2023 Do you belong to any clubs o r organizations such as hindu groups, unions, fraternal or athletic groups, or [...] Total Score - Questions 1-9 0 01/14 [facility] of Occupat ional [facility] - Occupational Stress Questionnaire Answer Date Recorded [...] place to sleep or slept in a fci (including now)? No 10/25/2023 Education Answer Date Recorded What is the highest level of school you have completed or the highest degree you have received? 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 SUPERVISOR Gender Identity Not on file Sexual Orientation [...] [place] 04/30/23 Office Visit Wesley Jimenez MD [facility] Showing recent visits within past 365 days and meeting all other requirements Future Appointments Date Type Provider Dept 02/01/24 Appointment Wesley Jimenez MD [facility] Showing future appointments within next 90 days and meeting all other requirements documented in this encounter Plan of Treatment Upcoming Encounters Date Type Department Care Team (Late st Contact Info) Description 06/18/2025 10:30 AM LIQUID YEAST SUPERVISOR Office Visit [facility] - Family [facility] [address] [place] [address] Wesley Jimenez MD [address] [address] documented as of this encounter Visit Diagnoses Not on filedocumented in this encounter Additional Health Concerns Infection Onset Date Last Indicated Resolved Time Respiratory Rule-Out 08/02/2024 08/02/2024 024 8:26 AM LIQUID YEAST SUPERVISOR COVID - 19 08/02/2024 08/02/2024 08/02/2024 8:26 AM LIQUID YEAST SUPERVISOR Assessment Noted Time PHQ-9 Depression Total Score: 0 10/25/19 24 3:42 PM CDT documented as of this encounter Care Teams Lunch Counter Manager Relationship Specialty Start Date End Date Wesley Jimenez MD [address] [address] PCP - General Family Medicine 07/18/15 Homar Meraz MD [address] [address] Consulting Physician Obstetrics & Gynecology 03/23/19 Manjula Turner MD #[address] [phone] Consulting Physician Endocrinology 09/13/20 documented as of this encounter
--- OUTSIDE RECORDS SUMMARY | 2025-02-26 08:37 | XMS_ITS | Clinical Summary ---
Author Organization [facility] Address [address] [place] [address] Care Team Providers Care Machine Heddle Cleaner Name Role Phone Wesley Jimenez MD Primary Care Provider [phone] Homar Meraz MD Unavailable [phone] Manjula Turner MD Unavailable Allergies Active Allergy Reactions Criticality Noted Date Comments Other Unknown Seasonal Allergies Sulfa Antibiotics Rash Medications Levocetirizine Dihydrochloride 5 MG Tablet TAKE 1 TABLET BY MOUTH EVERY DAY 90 Tablet 021 Active Drospirenone (SLYND PO) Take by mouth. Acti ve cetirizine (ZyrTEC) 10 MG Tablet Take 10 mg by mouth daily. Active Fluticasone Furoate-Vilanterol (Breo Ellipta) 100-25 MCG/ACT AEROSOL POWDER, BREATH ACTIVATED take 1 Puff by inhalation daily. 1 Each 5 023 Active albuterol 108 (90 Base) MCG/ACT Aerosol Solution TAKE 1-2 PUFFS BY INHALATION EVERY 6 HOURS NEEDED FOR WHEEZING. 8.5 g 5 024 Active montelukast (SINGULAIR) 10 MG Tablet Take 1 Tablet by mouth daily. 90 Tablet 3 024 Active fluticasone-salmet dori (Advair Diskus) 250-50 MCG/ACT AEROSOL POWDER, BREATH ACTIVATEDIndicatio ns:Severe persistent asthma without complication take 1 Puff by inhalation 2 times daily. 180 Each 3 024 Active albuterol (PROVENTIL, VENTOLIN) (2.5 MG/3ML) 0.083% Nebulizer Soln 3 mL by Nebulization route every 4 hours as needed for Wheezing, Shortness of Breath or Cough. 360 mL 024 Active Benzonatate 200 MG Capsule Take 1 Capsule by mouth 3 times daily as needed for Cough. 30 Capsule 024 Active Tirzepatide-Weight Management (Zepbound) 15 MG/0.5ML Solution Auto-injector INJECT 15 MG BY SUBCUTANEOUS ROUTE ONCE A WEEK. 2 mL 2 025 Active Tirzepatide-Weight Management (Zepbound) 15 MG/0.5ML Solution Auto-injector 15 mg by Subcutaneous route once a week. 2 mL 2 025 2024 Discontinued Active Problems Problem Noted Date Diagnosed Date Screening for cervical cancer 07/01/2018 Seasonal allergies 12/28/2017 Screening mammogram, encounter for 12/28/2017 Major depressive disorder wi th single episode, in full remission 12/28/2017 Bronchitis 09/16/2016 Attention deficit hyperactiv ity disorder (ADHD), combined type 08/29/2015 Asthma Elevated liver function tests Encounters Date Type Department Care Team Description 02/15/2025 Refill [facility] [place] [address] eWsley Jimeenz MD Medication Refill 12/21/2024 MyChart RX Renewal [facility] [address] [place] [address] Wesley Jimenez MD Medication Renewal Declined 12/18/2024 12:30 PM CDT Office Visit [facility] [address] [place] [address] Wesley Jimenez MD Physical exam, annual (Adult) (Primary Dx); Hyperglycemia Discharge Disposition: Discharged to home or Selfcare 12/18/2024 Results Follow-Up [facility] [address] [place] [address] Wesley Jimenez MD CMP (COMPREHENSIVE METABOLIC PANEL), HEMOGLOBIN A1C W/ ESTIMATED GLUCOSE, LIPID PANEL 12/18/2024 Travel from Last 3 Months Immunizations Immunization Administration Dates Next Due Covid-19, Mrna, Lnp-s, Pf, 3 0 Mcg/0.3 Ml Dose (Pfizer) 07/04/2021 Influenza Vaccine 06/19/2024 Influenza Vaccine greater than 3 yrs 07/28/2015, 05/16/2011 Influenza Vaccine, Quadrivalent, PF 04/16,04/30/2022,08/27/2020,07/03,07/01/2018,06/30/2017 Influenza,Split Virus,Trivalent,Injectable,PF 06/19/2024 PUR TDAP 7+ YRS IM 07/29/2015 Pneumococcal Vaccine Adult - 23 Valent 2 Pneumococcal conjugate PCV20 , polysaccharide [id number] conjugate, adjuvant, PF 04/30/2022 TD VACCINE 09/16/2011 Family History Medical History Relation Name Comments Cancer Father luekemia Diabetes Father Hypertension Mother Relation Name Status Comments Father Mother Alive Social History Tobacco Use Types Packs/Day Years Used Date Smoking Tobacco: Former Cigarettes 0.5 25 1 - 2014 Smokeless Tobacco: Never Tobacco Cessation:Counseling Given: No Alcohol Use Standard Drinks/Week Comments Yes 1 (1 standard drink = 0.6 oz pur e alcohol) [facility] Utilities Answer Date Recorded In the past 12 months has [employer], gas, oil, or water [employer] threatened to shut off services in your home? No 12/18/2024 Social Connection and Isolation Panel Answer Date Recorded In a typical week, how many times do you talk on the phone with family, friends, or neighbors? More than three times a week 12/18/2024 How often do you get togethe r with friends or relatives? More than three times a week 12/18/2024 How often do you attend chur ch or shinto services? 1 to 4 times per year 12/18/2024 Do you belong to any clubs o r organizations such as buddhist groups, unions, fraternal or athletic groups, or school groups? Yes 12/18/2024 How often do you attend meet ings of the clubs or organizations you belong to? 1 to 4 times per year 12/18/2024 Are you , , di vorced, , never , or living with a partner? 12/18/2024 AUDIT-C Answer Date Recorded Q1: How often do you have a drink containing alc ohol? Monthly or less 12/18/2024 Q2: How many drinks containi ng alcohol do you have on a typical day when you are drinking? 3 or 4 12/18/2024 Q3: How often do you have si x or more drinks on one occasion? Less than monthly 12/18/2024 Overall Financial Resource Strain (CARDIA) Answe r Date Recorded How hard is it for you to pa y for the very basics like food, housing, medical care, and heating? Not hard at all 12/18/2024 PHQ-2 Answer Date Recorded Total Score - Questions 1-9 0 12/2024 [facility] of Occupat ional Health - Occupational Stress Questionnaire Answer Date Recorded Do you feel stress - tense, restless, nervous, or anxious, or unable to sleep at night because your mind is troubled all the time - these days? Only a little 12/18/2024 Exercise Vital Sign Answer Date Recorde d On average, how many days pe r week do you engage in moderate to strenuous exercise (like a brisk walk)? 4 days 12/18/2024 On average, how many minutes do you engage in exercise at this level? 30 min 12/18/2024 Hunger Vital Sign Answer Date Recorded Within the past 12 months, y ou worried that your food would run out before you got the money to buy more. Never true 12/19/19 25 Within the past 12 months, t he food you bought just didn't last and you didn't have money to get more. Never true 12/18/2024 PRAPARE - Transportation Answer Date Re corded In the past 12 months, has l ack of transportation kept you from medical appointments or from getting medications? No 12/2024 In the past 12 months, has l ack of transportation kept you from meetings, work, or from getting things needed for daily living? No 12/18/2024 Housing Stability Vital Sign Answer Ishan e [...] place to sleep or slept in a long-term (including now)? No 10/25/2023 Housing Stability Vital Sign Answer Ishan e Recorded In the last 12 months, was t here a time when you were not able to pay the mortgage or rent on time? No 12/18/2024 In the past 12 months, how m any times have you moved where you were living? 0 12/18/2024 At any time in the past 12 m [facility], were you homeless or living in a long-term (including now)? No 12/18/2024 Education Answer Date Recorded What is the highest level of school you have completed or the highest degree you have received? 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 Gender Identity Not on file Sexual Orientation Not on file Last Filed Vital Signs Vital Sign Reading Time Taken Comments Blood Pressure 112/76 12/18/2024 12:26 PM CDT Pulse 104 12/18/2024 12:26 PM CDT Temperature 36 C (96.8 F) 12/18/2024 12:26 PM CDT Respiratory Rate 18 12/18/2024 12:26 PM CDT Oxygen Saturation 97% 12/18/2024 12:26 PM CDT Inhaled Oxygen Concentration - - Weight 75.5 kg (166 lb 8 oz) 12/18/2024 12:26 PM CDT Height 154.9 cm (5' 1) 12/18/2024 12:26 PM CDT Body Mass Index 31.46 12/18/2024 12:26 PM CDT Plan of Treatment Upcoming Encounters Date Type Department Care Team (Late st Contact Info) Description 06/18/2025 10:30 AM LOW EMISSION AUTOMOBILE DESIGNER [facility] Family [facility] [address] [place] [address] Wesley Jimenez MD [address] [address] Health Maintenance Due Date Last Done Comments Hepatitis C Virus (HCV) Screening 1977 Hepatitis B Immunization (1 of 3 - 19+ 3-dose series) 1996 Cologuard 2022 Immunochemical Fecal Occult Blood 2022 SARS-COV-2 Immunization ( season) 2024 07/04/2021, 10/21/2020 Pap Smear 05/28/2024 05/28/2021, 08/18/2018 Influenza Immunization (#1) 04/16/202511/2023, 06/19/2024, 04/30/2023, Additional history exists Td Immunization Every 10 Years (Adults With 1 Tdap) 07/29/2025 07/29/2015, 09/16/2011 Mammogram 10/05/2025 10/05/2024, 07/16, 02/07/2018 Cervical Cancer Screening (CCS) 08/29/2029 HPV/Cotest 08/29/2029 08/29/2024 Colonoscopy 05/11/2033 05/11/2023 Colorectal Cancer Screening 05/11/2033 Respiratory Syncytial Virus (RSV) Immunization (Adult) (1 - 1-dose 75+ series) 2052 Pneumococcal Immunization Combined Completed 04/30/2022, 09/16/2011 Discussion re Starting/Frequency of Mammograms Completed 10/05/2024, 08/03/2023, 06/19/2022, Additional history exists Human Papillomavirus (HPV) Immunization Aged Out No longer eligible based on patient's age to complete this topic Meningococcal Immunization (ACWY) Aged Out No longer eligible based on patient's age to complete this topic Rotavirus Immunization Aged Out No lo nger eligible based on patient's age to complete this topic Procedures Procedure Name Priority Date/Time Associated Diagnosis Comments LIPID PANEL Today 12/18/2024 1:07 PM CDT Physical exam, annual (Adult) HEMOGLOBIN A1C W/ ESTIMATED GLUCOSE Today 12/18/2024 1:07 PM CDT Physical exam, annual (Adult) Hyperglycemia CMP (COMPREHENSIVE METABOLIC PANEL) Today 12/18/2024 1:07 PM CDT Physical exam, annual (Adult) MAMMOGRAM BILATERAL GENERIC 10/05/2024 12:00 AM LOW EMISSION AUTOMOBILE DESIGNER PATHOLOGY CYTOLOGY HOSPICE COMMUNITY LIAISON Routine 08/18/2018 from Last 3 Months or Most Recently Relevant to Health Maintenance Results * HEMOGLOBIN A1C W/ ESTIMATED GLUCOSE (12/18/2024 1:07 PM CDT) HGB-A1C 5.2 4.0 - 6.0 % 12/18/2024 2:57 PM CDT [facility] Est Average Glucose 102.5 mg/dL 12/18/2024 2:57 PM CDT [facility] Blood Venipuncture / Unknown 12/18/2024 1:07 PM CDT 12/18/2024 2:40 PM CDT Narrative [facility] - 12/18/2024 2:57 PM CDT HEMOGLOBIN A1C: DIABETIC PATIENTS: WELL-CONTROLLED: 6.2 - 7.0 INTERMEDIATE WELL-CONTROLLED: 7.0 - 9.0 POORLY-CONTROLLED: >9.0 Specimens containing greater than 5% of Hemoglobin F may result in lower than expected % HbA1C results. us Wesley Jimenez MD CHEMISTRY ORDERABLES Final Re sult [facility] [address] [place] [address] * LIPID PANEL (12/18/2024 1:07 PM CDT) CHOLESTEROL 186 <200 mg/dL 12/18/2024 3:03 PM CDT [facility] TRIGLYCERIDES 55 <150 mg/dL 12/18/2024 3:03 PM CDT [facility] HDL CHOLESTEROL 62 >40 mg/dL 3:03 PM CDT [facility] LDL 113 <130 mg/dL 12/18/2024 3:03 PM CDT [facility] VLDL 11 10 - 50 mg/dL 12/18/2024 3:03 PM CDT [facility] CHOL/HDL RATIO 3.0 0.0 - 4.4 12/18/2024 3:03 PM CDT [facility] NON-HDL CHOLESTEROL 124 <130 mg/dL 12/18/2024 3:03 PM CDT [facility] IS THE PATIENT REQUIRED TO BE FASTING? No 12/18/2024 3:03 PM CDT [facility] Blood Venipuncture / Unknown 12/18/2024 1:07 PM CDT 12/18/2024 2:40 PM CDT Wesley Jimenez MD CHEMISTRY ORDERABLES Final Re sult [facility] [address] [place] [address] * (ABNORMAL) CMP (COMPREHENSIVE METABOLIC PANEL) (12/18/2024 1:07 PM CDT) SODIUM 138 136 - 145 mmol/L 12/18/2024 3:03 PM CDT [facility] POTASSIUM 4.0 3.5 - 5.1 mmol/L 12/18/2024 3:03 PM CDT [facility] CHLORIDE 106 98 - 107 mmol/L 12/18/2024 3:03 PM CDT [facility] CO2, VENOUS 23 22 - 30 mmol/L 12/18/2024 3:03 PM CDT [facility] ANION GAP 13.0 <18.0 mmol/L 12/18/2024 3:03 PM CDT [facility] GLUCOSE 103(H) 70 - 99 mg/dL 12/18/2024 3:03 PM CDT [facility] BUN 12 5 - 18 mg/dL 12/18/2024 3:03 PM CDT [facility] CREATININE, BLOOD 0.77 0.60 - 1.00 mg/dL 12/18/2024 3:03 PM T [facility] BUN/CREATININE RATIO 16 12 - 20 ratio 12/18/2024 3:03 PM T [facility] TOTAL PROTEIN 7.7 6.0 - 8.0 g/dL 12/18/2024 3:03 PM T [facility] ALBUMIN 4.2 3.5 - 5.0 g/dL 12/18/2024 3:03 PM [facility] A/G RATIO 1.2 1.0 - 2.2 12/18/2024 3:03 PM T [facility] CALCIUM 9.0 8.7 - 10.5 mg/dL 12/18/2024 3:03 PM [facility] T BILI 0.4 0.2 - 1.2 mg/dL 12/18/2024 3:03 PM [facility] SGOT (AST) 21 <43 U/L 12/18/2024 3:03 PM [facility] SGPT (ALT) 31 <56 U/L 12/18/2024 3:03 PM [facility] ALKALINE PHOSPHATASE 90 40 - 150 U/L 12/18/2024 3:03 PM [facility] IS THE PATIENT REQUIRED TO BE FASTING? No 12/18/2024 3:03 PM [facility] GFR, ESTIMATED >60 >=60 12/18/2024 3:03 PM [facility] Comment: Creatinine Clearance is the preferred criteria for selecting drug dose adjustments in renally impaired patients. The GFR is provided as additional pertinent clinical information. GFR is reported in mL/min/1.73 sq m. Calculation based on the Chronic Kidney Disease Epidemiology Collaboration (CKD- EPI) equation refit without adjustment for race. GFR, EST. >60 >=60 025 3:03 PM T [facility] GFR, EST. NONAFRICAN >60 >=60 12/18/2024 3:03 PM [facility] Blood Venipuncture / Unknown 12/18/2024 1:07 PM CDT 12/18/2024 2:40 PM CDT us Wesley Jimenez MD CHEMISTRY ORDERABLES Final Re sult [facility] [place] [address] * MAMMOGRAM BILATERAL GENERIC (10/05/2024 12:00 AM LOW EMISSION AUTOMOBILE DESIGNER) 10/05/2024 us Provider Scan IMG MAMMO ORDERABLES Final Resul t SCAN * PATHOLOGY CYTOLOGY HOSPICE COMMUNITY LIAISON (08/18/2018) Specimen of unknown material (specimen) us Ana Manzo APRN, CNP PATHOLOGY/CYTOLOGY [facility]ALA Final Result from Last 3 Months or Most Recently Relevant to Health Maintenance Insurance [facility] Care Teams Machine Heddle Cleaner Relationship Specialty Start Date End Date Wesley Jimenez MD #[address] [address] PCP - General Family Medicine 07/18/15 Homar Meraz MD #2 [facility] [address] [place] [address] Consulting Physician Obstetrics & Gynecology 03/23/19 Manjula Turner MD #[address] [id number] Consulting Physician Endocrinology 09/13/20
== END 2025-02-26 08:29 | disposition home or self-care (01) ==
PROVIDERS: PCP Internal Medicine; Visit Provider Orthopaedic Surgery
DX: M79.642 Pain in left hand (principal)
CPT/HCPCS: 73130